=== PATIENT | male | born 1935 | race Caucasian/White ===

== ENCOUNTER 2017-07-21 10:00 | Emergency (ER) | payer MEDICARE ==
--- NOTE | 2017-07-21 12:44 | CT ---
LUMBAR SPINE CT WITHOUT CONTRAST: HISTORY: Trauma. Dementia. Falls. Lost balance and fell backwards onto his back. Post traumatic back pain . The patient also has chronic back pain. COMPARISON: None. TECHNIQUE: A lumbar spine CT is performed without contrast. Reformatted images are submitted for interpretatio n. FINDINGS: There is no retroperitoneal mass, lymphadenopathy, or hematoma. The aorta has an overall normal denise iber. Atherosclerosis is noted. Symmetric attenuation of the psoas muscles. There are five lumbar type vertebral bodies. Vertebral body height is maintained. There is no frac ture. Straightening of normal lumbar lordosis is noted. Vacuum disk phenomenon at T11-T12, L1-L2, and L4-L5. Limited evaluation of the contents of the central spinal canal and the neural foramina due to techni que. T11-T12/T12-L1: No high grade central canal stenosis or high grade foraminal narrowing. L1-L2: Vacuum disk phenomenon. Generalized disk bulge results in mild central canal stenosis. The re is posterior element hypertrophy. Mild to moderate bilateral foraminal narrowing. L2-L3: Generalized disk bulge, ligamentum flavum thickening, and facet hypertrophy results in moder ate to severe central canal stenosis. The right neural foramen is patent. Mild to moderate left ne ural foraminal narrowing. L3-L4: Broad-based disk bulge, ligamentum flavum thickening, and facet hypertrophy results in moder ate central canal stenosis. Moderate right and severe left foraminal narrowing. L4-L5: Vacuum disk phenomenon. Generalized disk bulge without significant central canal stenosis. Moderate bilateral foraminal narrowing. Left hemilaminectomy defect is noted. L5-S1: Generalized disk bulge without high grade central canal stenosis. There appears to be mild narrowing of both subarticular zones, predominantly due to posterior element hypertrophy. Moderate bilateral foraminal narrowing. Incidental bone island in the right S1 level. IMPRESSION: 1. No evidence of fracture. 2. Degenerative changes of the lumbar spine as above. POS: [facility]
--- NOTE | 2017-07-21 12:50 | CT ---
CT BRAIN WITHOUT CONTRAST: Date: 07/21/17 HISTORY: Trauma. Fall. COMPARISON: CT brain dated 06/18/17. FINDINGS: Left mid frontal encephalomalacia is similar. No acute territorial infarct or hemorrhage. Extensive atrophy and microangiopathic changes. There is significant atrophy of the temporal lobes bilaterally. Dense calcifications of the carotid arteries. Paranasal sinuses and mastoids are clear. The calvarium is intact. Subtle hyperdensity of the posterior left insula appears chronic. IMPRESSION: No acute intracranial abnormality. POS: [facility]
== END 2017-07-21 11:59 | disposition home or self-care (01) ==
LOC: ERS 10:00
DX: M54.5 Low back pain (principal); I25.2 Old myocardial infarction; E03.9 Hypothyroidism, unspecified; K21.9 Gastro-esophageal reflux disease without esophagitis; N40.0 Benign prostatic hyperplasia without lower urinary tract symptoms; H40.9 Unspecified glaucoma; I10 Essential (primary) hypertension; F03.90 Unspecified dementia, unspecified severity, without behavioral disturbance, psychotic disturbance, mood disturbance, and anxiety; J45.909 Unspecified asthma, uncomplicated; Z86.73 Personal history of transient ischemic attack (TIA), and cerebral infarction without residual deficits; Z79.82 Long term (current) use of aspirin; Z79.899 Other long term (current) drug therapy; W18.30XA Fall on same level, unspecified, initial encounter
CPT/HCPCS: 70450; 72131

== ENCOUNTER 2018-03-05 06:34 | Observation (INO) | payer MEDICARE ==
[2018-03-05] MEDS ORDERED: Morphine 4 MG/ML VIAL ONE ×2 (07:12→10:36)
[2018-03-05 08:11] LABS: #Eosinphils 0.3 thou/uL (0.0-0.7); #Monocytes 0.9 thou/uL (0.11-0.59); #Neutrophils 5.2 thou/uL (1.40-6.50); %Basophils 0.5 % (0.0-1.0); %Eosinophils 4.1 % (0.0-10.0); %Monocytes 11.7 % (0.0-10.0); %Neutrophils 69.8 % (42.0-75.0); Hemoglobin 14.6 g/dL (14.0-18.0); Mean Corpuscular HGB CONC 32.8 g/dL (32.0-36.0); Mean Corpuscular Hemoglobin 32.9 pg (27.0-31.0); Mean Platelet Volume 8.6 fL (7.4-10.4); Platelet Count 278 thou/uL (130-400); Red Blood Cell (RBC) Count 4.43 mill/uL (4.70-6.10); White Blood Cell (WBC) Count 7.4 thou/uL (4.8-10.8)
[2018-03-05 08:16] LABS: PTT 30.5 SEC (22.9-36.1); Prothrombin Time 13.7 SEC (12.0-14.7)
[2018-03-05 08:26] LABS: ALT (SGPT) 11 U/L (8-55); AST (SGOT) 16 U/L (5-34); Albumin 4.2 g/dL (3.4-4.8); Alkaline Phosphatase 53 U/L (40-150); Anion Gap 11 mmol/L (10-20); BUN (Urea Nitrogen) 12 mg/dL (8.4-25.7); Bilirubin, Total 0.5 mg/dL (0.2-1.2); Calc. Creatinine Clearance 0 mL/min (70-130); Calcium 9.5 mg/dL (7.8-10.44); Carbon Dioxide 27 mmol/L (23-31); Chloride 106 mmol/L (98-107); Estimated GFR-MDRD 88; Globulin 2.8 g/dL (2.4-3.5); Glucose 85 mg/dL (83-110); Potassium 3.9 mmol/L (3.5-5.1); Sodium 140 mmol/L (136-145)
[2018-03-05 08:27] LABS: Troponin I Less than 0.010 ng/mL (< 0.028)
--- NOTE | 2018-03-05 08:51 | CT ---
CT HEAD NONCONTRAST: History: Fall. Head injury. Comparison: 07-21-17 FINDINGS: There is no evidence of acute intracranial hemorrhage or infarct. Diffuse cortical atrophy and chroni c ischemic small vessel disease are similar in appearance to the previous exam. No mass effect or griselda ft of midline structures. Visualized paranasal sinuses remain well aerated. IMPRESSION: No acute intracranial abnormalities are demonstrated. POS: [facility]
--- NOTE | 2018-03-05 08:52 | CT ---
CT CERVICAL SPINE NONCONTRAST: History: Fall, neck injury. FINDINGS: Vertebral body height and alignment are maintained. Post-operative changes include posterior operativ e decompression of the lower cervical spine. Cervicothoracic junction is intact. Prominent osteophyto sis is present throughout the vertebral bodies and facets. No acute fracture or dislocation. IMPRESSION: Prominent degenerative and post-operative changes of the cervical spine. No acute osseous abnormaliti es are demonstrated. POS: [facility]
--- NOTE | 2018-03-05 08:55 | CT ---
CT THORACIC SPINE NONCONTRAST: History: Fall. Back injury. FINDINGS: Vertebral body height and alignment of the thoracic spine are intact. Moderate osteophytosis is prese nt throughout the vertebral bodies and facets. No acute fracture or dislocation are apparent. L1 superior endplate compression is detailed on dedicated CT lumbar spine. Small hiatal hernia. Calcification of the arterial structures. Old right posterior upper rib fracture s. IMPRESSION: 1. Degenerative changes thoracic spine. No acute osseous abnormalities are demonstrated. 2. Please see separate report regarding L1 compression injury. 3. Atherosclerosis. 4. Small hiatal hernia. POS: [facility]
--- NOTE | 2018-03-05 08:56 | RAD ---
AP PELVIS ONE VIEW: History: 82-year-old male with history of fall. Comparison: 10-22-16 FINDINGS: Bilateral hip joint arthrosis. No evidence for acute fracture or dislocation. Moderate degenerative c hanges. IMPRESSION: Bilateral hip joint arthrosis as well as generalized degenerative changes. No acute fracture or dislo cation. POS: [facility]
--- NOTE | 2018-03-05 08:57 | RAD ---
CHEST ONE VIEW: History: Fall. Comparison: 2017 FINDINGS: Dual-lead pacer is present. No focal airspace consolidation, pneumothorax, or effusion. There is a skin fold in the right hemithorax. Mild degenerative disease at the shoulders. IMPRESSION: No acute intrathoracic abnormality. POS: [facility]
--- NOTE | 2018-03-05 09:02 | CT ---
CT LUMBAR SPINE NONCONTRAST: History: Fall, back injury. FINDINGS: Mild depression/compression of the L1 superior endplate is present with minimal loss of height. No re tropulsion. Other vertebral body heights are maintained. Minimal degenerative retrolisthesis at the L3-4 level. D egenerative changes are similar to the 07-21-17 CT exam. There is calcification throughout the arterial structures. IMPRESSION: 1. Very mild acute L1 superior endplate compression injury. 2. Degenerative changes lumbar spine. 3. Atherosclerosis. Findings were called to Dr. Hilton in the Emergency Department at 0815 hours. Code CR POS: [facility]
[2018-03-05 09:09] LABS: Bilirubin Negative (Negative); Blood, Urine Negative (Negative); Clarity CLEAR (Clear); Glucose, Urine (Dipstick) Negative (Negative); Leukocyte Negative (Negative); Nitrite Negative (Negative); Protein, Urine (Dipstick) Negative (Neg-Trace); Specific Gravity, Urine 1.012 (1.002-1.036); Urobilinogen 0.2 mg/dL (0.2-1.0); pH, Urine 7.5 (5.0-9.0)
--- NOTE | 2018-03-05 14:19 | HP ---
DATE OF ADMISSION: 03/05/2018 ADMITTING PHYSICIAN: Dr. Fritz Mart. CONSULTING PHYSICIAN: Dr. Jaramillo, Neurosurgery. HISTORY OF PRESENT ILLNESS: Mr. Sheth is an 82-year-old male who for the past 4 years has had multiple falls due to his reported peripheral neuropathy and cervical myelopathy. He sustained a fall 3 days ago and has had gradual increase in back pain, making it difficult for him to move within his home and unable to assist with his activities of daily living. Due to his pain, he was transported to the emergency department by EMS today. Workup in the ED identified an L1 compression fracture. Neurosurgery was consulted and recommended TLSO brace placement. service liaison representative was consulted for evaluation of his admission to the rehab from the emergency department; however, this was unable to be completed. Due to the patient's significant back pain, he is felt unable to be safe discharge to home. Trauma Surgery was consulted for admission and management. Patient reports the pain is exacerbated by movement. The pain is alleviated by nothing. PAST MEDICAL HISTORY: 1. Cervical spinal stenosis. 2. Hyperlipidemia. 3. Obstructive sleep apnea requiring CPAP. 4. Hypothyroidism. 5. Hypertension. 6. History of chronic constipation. 7. History of atrial fibrillation. 8. History of colitis. PAST SURGICAL HISTORY: 1. Cholecystectomy. 2. Pacemaker placement. 3. Tonsillectomy. 4. Colon resection. 5. Adenoidectomy. ALLERGIES: 1. IODINE. 2. ORAL AND IV DYE. 3. LEVOFLOXACIN. 4. PENICILLIN. MEDICATIONS: 1. Azopt ophthalmic solution b.i.d. 2. Alphagan ophthalmic solution b.i.d. 3. Systane ophthalmic solution b.i.d. 4. Latanoprost ophthalmic solution b.i.d. 5. Isopto Carpine ophthalmic solution b.i.d. 6. Tramadol 50 mg 1 q.8 hours p.r.n. 7. Lasix 20 mg daily. 8. Nitrolingual pump spray 1 sublingual p.r.n. 9. Dutasteride 0.5 mg 1 daily. 10. Magnesium 500 mg daily. 11. Docusate daily. DIAGNOSTIC IMAGING: Significant for a mild L1 superior endplate compression fracture. EKG, paced rhythm. LABORATORY STUDIES: CBC: WBC 7.4, RBC 4.43, hemoglobin 14.6, hematocrit 44.6, platelets 278. Coagulation: PT 13.7, INR 1.0. Chemistry: Sodium 140, potassium 3.9, chloride 106, carbon dioxide 27, BUN 12, creatinine 0.83, glucose 85, AST 16, ALT 11. Troponin less than 0.010. REVIEW OF SYSTEMS: General: Denies chills, fever, recent weight loss, general malaise. HEENT: Denies pain, rhinorrhea or otorrhea. Pulmonary: Denies shortness of breath, cough, or wheezing. Denies chest tenderness. Cardiovascular: Denies chest pain. Denies syncope. Gastrointestinal: Denies abdominal pain. Denies nausea, denies vomiting, denies diarrhea, denies constipation. Musculoskeletal: Reports fall. Skin: Denies rash or skin changes. Neurologic: Reports cervical myelopathy history and chronic neck pain. Reports lower extremity weakness. Back: Reports mid lower back pain. PHYSICAL EXAMINATION: VITAL SIGNS: Blood pressure 136/75, pulse 61, respirations 18, O2 sat 93% on room air. CONSTITUTIONAL: Elderly male lying in bed in no acute distress, nontoxic appearing. HEENT: Atraumatic, normocephalic. NECK: Trachea midline. No posterior neck tenderness. RESPIRATORY/CHEST: Bilateral breath sounds clear. No respiratory distress. No tenderness to palpation. Chest movement symmetrical. CARDIOVASCULAR: Regular rate and rhythm. Heart sounds normal. ABDOMEN: Soft, nontender, nondistended. GENITOURINARY: Nolan in place with clear yellow urine. BACK: L-spine tenderness. EXTREMITIES: Normal range of motion. Pulses palpable, 2+. NEUROLOGIC: Awake, alert, oriented. No focal deficits. No focal weakness. SKIN: Warm, dry, and normal in color. PSYCHIATRIC: Normal mood and affect. ASSESSMENT: 1. Status post ground level fall. 2. L1 compression fracture. 3. Acute traumatic pain. 4. Generalized debility. 5. History of chronic back pain and multiple falls over the past 4 years. The patient is a current patient of Dr. Mcfadden, Neurosurgery. PLAN: 1. Admit to observation for pain control. 2. Consult Neurosurgery. TLSO brace to be placed. 3. Physical and occupational therapy evaluation. 4. Case management consult for discharge planning. Anticipate patient will need rehab or [facility] facility. 5. Discussed with music rehabilitation therapist. Evaluation in progress. 6. Oral analgesia for pain control. 7. Regular diet. 8. Hospital Medicine consult for assistance with medical management. 9. Discussed code status at length with the patient's and patient's [id number]. The patient is DNR per family request. This patient was reviewed with Dr. Mart, attending surgeon, who agrees with plan. MTDD
[2018-03-05] MEDS ORDERED: Dextrose 50% Abboject 50 ML SYRINGE SLOW IVP PRN (17:03)
[2018-03-05] MEDS ORDERED: Dextrose 5% in Water 1,000 ML IV PRN (17:03)
--- NOTE | 2018-03-05 18:38 | CON ---
DATE OF CONSULTATION: 03/05/2018 ATTENDING PHYSICIAN: Dr. Tunde Cardona. HISTORY OF PRESENT ILLNESS: Patient is an 82-year-old male with a past medical history of cervical stenosis status post C^ posterior decomp[place] [address] Mcfadden, hypertension, hyperlipidemia, atrial fibrillation with history of multiple falls over the years, who presented to the emergency department after mechanical fall. His family reported that 3 days ago, he tripped while walking with his walker in his home. He developed some lower back pain at that time which became progressively worse over the past 3 days, making it difficult to sustain ADLs in his home. His family brought him to the emergency department for further evaluation where CT of the lumbar spine was done which revealed an L1 compression deformity. I reviewed these films which showed mild wedge fracture at L1. There is no retropulsion. I have seen the patient at the bedside. He is awake, alert, no acute distress. He has 5/5 strength throughout. No focal motor weakness. In discussing with his family, they report in spite of cervical decompression, he continued to have falls, has been worked up by multiple physicians without clear etiology for his frequent falling. His family reports that his ambulation and falling does not appear to be in any significant worsening from his baseline. His family states that he does well when he is consistent with his therapy, but the patient has been noncompliant as of late. PAST MEDICAL HISTORY: Cervical stenosis, hypertension, hyperlipidemia, sleep apnea, hypothyroid, chronic constipation, atrial fibrillation. PAST SURGICAL HISTORY: Cholecystectomy, pacemaker, tonsillectomy, colon resection, posterior C6 cervical decompression. ALLERGIES: IODINE. FAMILY HISTORY: Noncontributory. PHYSICAL EXAMINATION: CONSTITUTIONAL: Patient is sitting in the bed comfortable, in no acute distress. HEENT: Normocephalic, atraumatic. EYES: PERRLA. Extraocular movements intact. ENT: Oral mucosa is pink, intact, moist. He has a normal voice. NECK: Nontender to palpation. Free active range of motion, no meningismus or nuchal rigidity. CARDIOVASCULAR: Regular rate and rhythm. LUNGS: The patient is breathing comfortably with symmetric chest expansion. MUSCULOSKELETAL: Patient has free active range of motion of all extremities. No focal motor weakness is identified. No reflex asymmetry. BACK: He is tender to palpation over the upper lumbar spine. Pain with any movement. ASSESSMENT: This is an 82-year-old male who has had multiple falls over the years without any clear etiology. His family denies any significant worsening with his ambulation, reports that he does do well when he is consistent with this therapy; however, he has been noncompliant with this as of late. His CT of the lumbar spine revealed a mild compression deformity at L1. There is no retropulsion. I do not anticipate any acute neurosurgical intervention for this fracture and a TLSO brace has been ordered. The patient would benefit from admission for pain control and transition to inpatient rehabilitation for improvement in his ambulation. PLAN: We will plan to follow up with the patient in approximately 4 weeks with repeat set of lumbar x-rays. I will arrange this. I have also discussed this plan with Dr. Cardona who is in agreement. Please reach out to Neurosurgery Service for additional questions or concerns. JOSEPH
[2018-03-05] MEDS ORDERED: Hydrocerin (Eucerin) Cream 120 gm Jar TOP PRN (22:14)
[2018-03-05] MEDS ORDERED: Diabetic Tussin 200 MG/10 ML UDCUP PO PRN (22:14)
[2018-03-05] MEDS ORDERED: Mag-Al 1200 mg/1200 mg/30 ML UDCUP PO PRN (22:14)
[2018-03-05] MEDS ORDERED: Senokot 8.6 MG TAB PO PRN (22:14)
[2018-03-05] MEDS ORDERED: Ondansetron ODT 4 MG TAB PO PRN (22:14)
[2018-03-05] MEDS ORDERED: hydrALAZINE 20 MG/ML VIAL SLOW IVP PRN (22:14)
[2018-03-05] MEDS ORDERED: Artificial Tears 18 DROP/0.9 ML EA EYE PRN (22:14)
[2018-03-05] MEDS ORDERED: Milk Of Magnesia 30 ML UDCUP PO PRN (22:14)
[2018-03-05] MEDS ORDERED: Ondansetron HCl/PF 4 MG/2 ML Vial IVP PRN (22:14)
[2018-03-05] MEDS ORDERED: Chloraseptic Spray 180 ml Bottle PO PRN (22:14)
[2018-03-05] MEDS ORDERED: Sodium Chloride 0.65% Nasal 44 ML BOT EA NARE PRN (22:14)
[2018-03-05] MEDS ORDERED: Famotidine 20 MG TAB PO PRN (22:14)
[2018-03-05] MEDS ORDERED: Loratadine 10 MG TAB PO PRN (22:14)
[2018-03-05] MEDS ORDERED: BRINZOLAMIDE 1% EA EYE SCH (22:30)
[2018-03-05] MEDS ORDERED: OPTH EA EYE SCH ×3 (22:30)
[2018-03-05] MEDS ORDERED: PILOCARPINE 1% R EYE SCH (22:30)
[2018-03-05] MEDS ORDERED: BRIMONIDINE EA EYE SCH (22:30)
[2018-03-05] MEDS ORDERED: LATANOPROST 0.005% EA EYE SCH (22:30)
[2018-03-05] MEDS ORDERED: OPTH R EYE SCH (22:30)
[2018-03-05] MEDS ORDERED: Tamsulosin HCl 0.4 MG CAP PO SCH (22:30)
[2018-03-05] MEDS ORDERED: [UNRECOGNIZED DRUG - OTHER] EA EYE SCH (22:30)
[2018-03-05] MEDS ORDERED: Dutasteride 0.5 MG CAP PO SCH (22:30)
[2018-03-05] MEDS: Ibuprofen 600 MG TAB PO PRN (22:49)
[2018-03-05] MEDS: Senokot S 8.6-50 MG TAB PO SCH (22:49)
[2018-03-05] MEDS: Zolpidem Tartrate 5 MG TAB PO PRN (22:50)
--- NOTE | 2018-03-05 23:28 | CON ---
DATE OF CONSULTATION: 03/05/2018 PRIMARY CARE PHYSICIAN: Michael De La Rosa MD ATTENDING PHYSICIAN: Dr. Mart. REASON FOR CONSULTATION: Medical co-management. HISTORY OF PRESENT ILLNESS: An 82-year-old male who has multiple medical problems, who was brought to emergency room earlier today with a complaint of back pain. The patient had a fall at his home on Thursday. He did not have any loss of consciousness. It was a mechanical fall, but unexplained. Per , the patient had multiple falls at home and since then he was having gradually increasing back pain. He was also having back pain, which was getting worse with walking and with inspiration. He denies any incontinence of urine or stool. He denies any pleuritic chest pains, shortness of breath, fever, chills , UTI symptoms. He denies any head injury. He denies any headache or focal motor or sensory symptoms. His back pain intensity was about 10/10, which was getting worse with walking, sharp in nature. He denies any radicular pain. This patient has a long history of cervical stenosis and he required cervical spine decompression as well as posterior decompression [place] [address] Mcfadden. The patient also has arthritis everywhere and today in the emergency room, CT lumbar spine showed L1 compression deformity. The patient was admitted under trauma team and neurosurgeon saw this patient. Later on today, we were consulted for medical co-management. REVIEW OF SYSTEMS: The following complete review of systems was negative, unless otherwise mentioned in the HPI or below: Constitutional: Weight loss or gain, ability to conduct usual activities. Skin: Rash, itching. Eyes: Double vision, pain. ENT/Mouth: Nose bleeding, neck stiffness, pain, tenderness. Cardiovascular: Palpitations, dyspnea on exertion, orthopnea. Respiratory: Shortness of breath, wheezing, cough, hemoptysis, fever or night sweats. Gastrointestinal: Poor appetite, abdominal pain, heartburn, nausea, vomiting, constipation, or diarrhea. Genitourinary: Urgency, frequency, dysuria, nocturia. Musculoskeletal: Pain, swelling. Neurologic/Psychiatric: Anxiety, depression. Allergy/Immunologic: Skin rash, bleeding tendency. Please see my HPI for pertinent positive and negative. All other review of systems reviewed and negative except as mentioned in HPI. PAST MEDICAL HISTORY: Cervical spine stenosis, required surgery in 2014; hypertension; dyslipidemia; hypothyroidism; chronic constipation; paroxysmal atrial fibrillation; obstructive sleep apnea, requiring CPAP machine; glaucoma; benign enlargement of prostate; gastroesophageal reflux disease; coronary artery disease. PAST SURGICAL HISTORY: Cholecystectomy, pacemaker insertion, tonsillectomy, colon resection, adenoidectomy, hernia repair. PAST PSYCHIATRIC HISTORY: Reviewed and negative. ALLERGIES: IODINE, ORAL AND IV CONTRAST, LEVOFLOXACIN, PENICILLIN. SOCIAL HISTORY: The patient is , lives at home with his . No history of tobacco, alcohol, or illicit drug abuse. 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 FAMILY HISTORY: No strong family history of premature CAD, CVA or cancer. EMERGENCY ROOM COURSE: The patient was given morphine 4 mg x2. CURRENT HOME MEDICATIONS: Aspirin 81 mg p.o. daily; Alphagan ophthalmic drops, one drop each eye daily; Azopt ophthalmic drops b.i.d.; Colace 100 mg daily; Avodart 0.5 mg p.o. daily; Lasix 20 mg p.o. daily; Xalatan eyedrops q.p.m.; Synthroid 50 mcg p.o. daily; magnesium oxide 400 mg p.o. daily; nitroglycerin p.r.n.; Protonix 40 mg p.o. daily; pilocarpine 1 drop in right eye q.6 hourly; MiraLax 17 grams p.o. daily; potassium 1 tablet daily; Systane eyedrops q.12 hourly; Ranexa 500 mg p.o. daily; Flomax 0.4 mg p.o. at bedtime; tramadol 50 mg q.8 hourly p.r.n.; coenzyme Q10, 200 mg p.o. daily. PHYSICAL EXAMINATION: VITAL SIGNS: On arrival to emergency room, blood pressure 161/98, pulse 80, respiratory rate 16, temperature 98.7, saturation 97% on room air, weight 83.9 kilograms. GENERAL: The patient is currently alert, awake, in no acute distress. HEAD: Normocephalic, atraumatic. EYES: Pupils round, reactive to light. Extraocular muscle intact. ENT: Oropharynx within normal limits. Moist mucous membranes. No oral lesion , no pharyngeal erythema, no exudate. NECK: Supple. No JVD, no thyromegaly, no carotid bruit, no jugular venous distention. LUNGS: Clear to auscultation without any rhonchi or rales. CARDIAC: S1, S2 regular without any murmur. No gallop, no rub. ABDOMEN: Soft. Bowel sounds present. Nontender, nondistended. No organomegaly, no mass. In the emergency room, the patient had bladder distention, required Nolan catheter. GENITALIA: Nolan catheter in place. BACK: Tenderness over lumbar spine. EXTREMITIES: Upper extremity passive movement of all joints are normal. Lower extremity passive movement of all joints are normal. No edema. Good peripheral pulsation. SKIN: No skin rash. HEMATOLOGIC: No lymphadenopathy. PSYCHIATRIC: Normal affect. NEUROLOGIC: The patient follows commands. He does not have any focal neurological deficit. He moves all 4 limbs. PSYCHIATRIC: Normal affect. SIGNIFICANT LABORATORY DATA: EKG showing complete right bundle-branch block pattern, nonspecific ST-T changes. CT brain based on my review, no acute intracranial process. CT cervical spine negative for any fracture or dislocation, but consistent with cervical arthritis. Lumbar and thoracic spine CT scan negative for any acute process, but showed overall degenerative spine disease. CT lumbar spine showing degenerative spine disease with L1 compression fracture. Chest x-ray based on my review, no acute cardiopulmonary process. CT brain based on my review, no acute intracranial process. SIGNIFICANT LABORATORY DATA: WBC 7.4, hemoglobin 14.6, MCV 100, platelet 278, INR 1.0. BMP: Sodium 140, potassium 3.9, chloride 106, carbon dioxide 27, anion gap 11, BUN 12, creatinine 0.83, glucose 85, calcium 9.5. LFT: AST 16, ALT 11, alkaline phosphatase 53, albumin 4.2. Troponin I less than 0.010. Urinalysis is normal. ASSESSMENT AND PLAN: 1. L1 compression fracture. This patient is elderly. He most likely has underlying osteoporosis. He had mechanical fall and subsequently he had L1 compression fracture and because of that, the patient has worsening of acute on chronic back pain. At this point, the patient is already evaluated by neurosurgeon. This patient most likely will need a thoracolumbar spine brace. [facility] will be notified. This patient will need PT/OT evaluation and possibly rehab screen or placement to [facility] home. technical account manager will be consulted. His pain will be controlled with pain medication. 2. Frequent falls. This patient will need PT/OT and eventual strengthening his physical deconditioning with exercise program at a [facility] home versus rehabilitation. technical account manager will be consulted. Rehabilitation will be consulted. 3. Coronary artery disease. Continue aspirin 81 mg p.o. daily. 4. Glaucoma. Continue Alphagan, Azopt, pilocarpine, Xalatan eyedrops as per home dosage. 5. Benign enlargement of prostate. Continue Avodart 0.5 mg p.o. daily along with Flomax 0.4 mg p.o. daily. 6. Hypothyroidism. Continue Synthroid 50 mcg p.o. daily. 7. Chronic constipation. Continue stool softener on daily basis. 8. Obstructive sleep apnea. The patient can use his home CPAP machine while in hospital. 9. Macrocytosis. We will start folic acid and vitamin B12 therapy on him. 10. Deep venous thrombosis prophylaxis. SCD boots. 11. Acute urinary retention likely due to underlying acute pain, constipation, and underlying benign enlargement of prostate. Currently, Nolan catheter placed. The patient will need a voiding trial tomorrow. If he does not void by himself, then he may need a catheter in and that he has to follow up with Urology on an outpatient basis. CODE STATUS: The patient is DNR. The patient's is surrogate decision maker. Disposition plan based on clinical course. Most likely, the patient will stay in hospital 24-48 hours, and he will need rehabilitation or [facility] home placement. Gastrointestinal prophylaxis, Protonix 40 mg p.o. daily. Thank you for the consult. We will follow up with you while in hospital. JOSEPH
[2018-03-06] MEDS: Levothyroxine Sodium 50 MCG TAB PO SCH (05:19)
[2018-03-06 06:07] LABS: Anion Gap 11 mmol/L (10-20); BUN (Urea Nitrogen) 15 mg/dL (8.4-25.7); Calc. Creatinine Clearance 80 mL/min (70-130); Calcium 9.1 mg/dL (7.8-10.44); Carbon Dioxide 25 mmol/L (23-31); Chloride 105 mmol/L (98-107); Estimated GFR-MDRD Greater than 90; Glucose 97 mg/dL (83-110); Magnesium 2.3 mg/dL (1.6-2.6); Phosphorus 3.7 mg/dL (2.3-4.7); Potassium 3.6 mmol/L (3.5-5.1); Sodium 137 mmol/L (136-145)
[2018-03-06 06:12] LABS: Band 1 % (5-11); Eosinophils 1 % (0-10); Hemoglobin 14.4 g/dL (14.0-18.0); Lymphocytes 19 % (21-51); MDiff Complete? YES; Mean Corpuscular Hemoglobin 32.8 pg (27.0-31.0); Mean Corpuscular Volume 99.3 fl (80.0-94.0); Mean Platelet Volume 8.1 fL (7.4-10.4); Monocytes 12 % (0-10); Neutrophil 67 % (42-75); Platelet Count 274 thou/uL (130-400); RBC Distribution Width 11.7 % (11.5-14.5); White Blood Cell (WBC) Count 8.4 thou/uL (4.8-10.8)
[2018-03-06] MEDS: Polyethylene Glycol 3350 17 GM Packet PO SCH (08:49)
[2018-03-06] MEDS: Magnesium Oxide 250 MG TAB PO SCH (08:49)
[2018-03-06] MEDS: Cyanocobalamin (Vitamin B-12) 1,000 MCG TAB PO SCH (08:49)
[2018-03-06] MEDS: Potassium Chloride 10 MEQ TAB PO SCH (08:50)
[2018-03-06] MEDS: Aspirin 81 mg Enteric Coated Tablet PO SCH (08:50)
[2018-03-06] MEDS: Folic Acid 1 MG TAB PO SCH (08:50)
[2018-03-06] MEDS: Calcium Carbonate + Vit D 1 TAB PO SCH ×2 (08:50→16:31)
[2018-03-06] MEDS: Ibuprofen 600 MG TAB PO PRN ×2 (08:50→20:03)
[2018-03-06] MEDS: Furosemide 20 MG TAB PO SCH (08:51)
[2018-03-06] MEDS: Senokot S 8.6-50 MG TAB PO SCH ×2 (08:51→20:03)
[2018-03-06] MEDS: OPTH R EYE SCH ×4 (09:09→20:12)
[2018-03-06] MEDS: PILOCARPINE 1% R EYE SCH ×4 (09:09→20:12)
[2018-03-06] MEDS: [UNRECOGNIZED DRUG - OTHER] EA EYE SCH ×2 (09:10→20:12)
[2018-03-06] MEDS: OPTH EA EYE SCH ×4 (09:11→20:12)
[2018-03-06] MEDS: BRINZOLAMIDE 1% EA EYE SCH ×2 (09:11→20:12)
--- NOTE | 2018-03-06 10:48 | ADD-HP ---
ADDENDUM This is an addendum to the H&P dictated by Dena Diallo Trauma SILK EXAMINER. For full details, please see her dictated H&P, the details of which I have verified. HISTORY OF PRESENT ILLNESS: In short, Mr. Sheth is an 82-year-old man who lost his balance and fell 3 days ago, sustaining back pain. This has been increasing over the past 3 days and making it diffi cult for him to do his activities of daily living. He was brought in by EMS and found to have an L1 compression fracture and TLSO brace placement was recommended. Due to his frequent falls and signifi cant back pain, he was admitted to the hospital with Neurosurgery consultation and physical therapy a nd PM&R. PAST MEDICAL AND SURGICAL HISTORY: As per trauma H&P. ALLERGIES AND MEDICATIONS: Verified as well. IMAGING: Negative except for L1 superior endplate compression fracture. LABORATORY DATA: Labs are unremarkable. Coags are normal. PHYSICAL EXAMINATION: No other acute findings except for pain over the lower back. He is going to be admitted with PT, OT and PM&R evaluation and treatment and will likely need to be a dmitted to acute rehabilitation unless his condition improves.
--- NOTE | 2018-03-06 13:07 | PDOC.PN ---
- Subjective Encounter Start Date: 03/06/18 Encounter Start Time: 08:00 Pt seen for followup re: hypothyroidism. Denies chest pain. Back pain is better. No nausea, vomiting or diarrhea. - Objective Resuscitation Status: Resuscitation Status DNR:Do Not Resuscitate Vital Signs & Weight: Vital Signs (12 hours) Temp Pulse Resp BP Pulse Ox 03/06/18 11:34 97.4 F L 63 16 178/70 H 94 L 03/06/18 08:10 97.9 F 54 L 12 151/75 H 95 03/06/18 08:09 97.8 F 72 16 03/06/18 08:00 62 16 164/71 H 93 L Weight Weight 183 lb 6.4 oz I&O: 03/05/18 03/06/18 03/07/18 06:59 06:59 06:59 Intake Total 450 Output Total 750 Balance -300 Result Diagrams: 03/06/18 05:21 03/06/18 05:21 Phys Exam - Physical Examination Constitutional: NAD HEENT: moist MMs Neck: supple Respiratory: clear to auscultation bilateral Cardiovascular: RRR Gastrointestinal: soft Neurological: moves all 4 limbs Psychiatric: normal affect Dx/Plan (1) Hypothyroidism Code(s): E03.9 - HYPOTHYROIDISM, UNSPECIFIED Status: Chronic Comment: continue levothyroxine (2) CAD (coronary artery disease) Code(s): I25.10 - ATHSCL HEART DISEASE OF [place] CORONARY ARTERY W/O ANG PCTRS Status: Chronic Qualifiers: Comment: stable, continue aspirin (3) GERD (gastroesophageal reflux disease) Code(s): K21.9 - GASTRO-ESOPHAGEAL REFLUX DISEASE WITHOUT ESOPHAGITIS Status: Chronic Comment: continue Protonix (4) Hypertension Code(s): I10 - ESSENTIAL (PRIMARY) HYPERTENSION Status: Chronic Qualifiers: Comment: Monitor vital signs, titrate antihypertensives as needed - Plan plan discussed w/ family, PT/OT, out of bed/ambulate * . Review of Systems - Review of Systems Respiratory: negative: Cough, Shortness of Breath, SOB with Excertion, Pleuritic Pain, Wheezing Cardiovascular: negative: chest pain, palpitations, orthopnea, paroxysmal nocturnal dyspnea, edema, light headedness - Medications/Allergies Allergies/Adverse Reactions: Allergies Allergy/AdvReac Type Severity Reaction Status Date / Time Penicillins Allergy Intermediate Rash Verified 03/05/18 17:43 Iodinated Contrast- Oral and Allergy Verified 03/05/18 17:43 IV Dye [Iodinated Contrast Media - IV Dye] levofloxacin [From Levaquin] Allergy Rash Verified 03/05/18 17:43 Medications: Current Medications Acetaminophen (Tylenol) 1,000 mg PO Q6H PRN PRN Reason: Moderate to Severe Pain (6-10) Al Hydroxide/Mg Hydroxide (Maalox) 15 ml PO Q4H PRN PRN Reason: Heartburn or Indigestion Artificial Tears (Tears Naturale) 0 drop EA EYE PRN PRN PRN Reason: Dry Eyes Aspirin (Ecotrin) 81 mg PO DAILY [facility] Last Admin: 03/06/18 08:50 Dose: 81 mg Calcium/Vitamin D (Caltrate 600 + Vit D) 1 tab PO BID-[facility] Last Admin: 03/06/18 08:50 Dose: 1 tab Cholecalciferol (Vitamin D3) 1,000 units PO DAILY [facility] Last Admin: 03/06/18 08:50 Dose: 1,000 units Cyanocobalamin (Vitamin B-12) 1,000 mcg PO DAILY [facility] Last Admin: 03/06/18 08:49 Dose: 1,000 mcg Dextrose/Water (Dextrose 50%) 25 gm SLOW IVP PRN PRN PRN Reason: Hypoglycemia Dutasteride (Avodart) 0.5 mg PO HS [facility] Emollient Cream (Hydrocerin Cream) 0 gm TOP BIDPRN PRN PRN Reason: Dry Skin Famotidine (Pepcid) 20 mg PO BIDPRN PRN PRN Reason: Heartburn or Indigestion Folic Acid (Folvite) 1 mg PO DAILY [facility] Last Admin: 03/06/18 08:50 Dose: 1 mg Furosemide (Lasix) 20 mg PO DAILY [facility] Last Admin: 03/06/18 08:51 Dose: 20 mg Glucagon (Glucagon) 1 mg IM PRN PRN PRN Reason: Hypoglycemia Guaifenesin (Robitussin Sf) 200 mg PO Q4H PRN PRN Reason: Cough Hydralazine HCl (Apresoline) 10 mg SLOW IVP Q4H PRN PRN Reason: Systolic BP > 180 Dextrose/Water (D5w) 1,000 mls @ 0 mls/hr IV .Q0M PRN; As Directed PRN Reason: Hypoglycemia Ibuprofen (Motrin) 600 mg PO Q8H PRN PRN Reason: Pain Last Admin: 03/06/18 08:50 Dose: 600 mg Levothyroxine Sodium (Synthroid) 50 mcg PO 0600 [facility] Last Admin: 03/06/18 05:19 Dose: 50 mcg Loratadine (Claritin) 10 mg PO DAILYPRN PRN PRN Reason: Sinus Symptoms Magnesium Hydroxide (Milk Of Magnesium) 30 ml PO DAILYPRN PRN PRN Reason: Constipation Magnesium Oxide (Magnesium Oxide) 500 mg PO DAILY [facility] Last Admin: 03/06/18 08:49 Dose: 500 mg Ondansetron HCl (Zofran Odt) 4 mg PO Q6H PRN PRN Reason: Nausea/Vomiting Ondansetron HCl (Zofran) 4 mg IVP Q6H PRN PRN Reason: Nausea/Vomiting Brimonidine ( Alphagan P 0.1%) Opth Soln 0 each EA EYE QPM [facility] Brinzolamide (Azopt) (1% Opth Susp) 0 each EA EYE BID [facility] Last Admin: 03/06/18 09:11 Dose: 1 each Latanoprost (Xalatan () 0.005% Opth Soln) 0 each EA EYE QPM [facility] Pilocarpine (Isopto Carpine) 1% Opth Soln 0 each R EYE QID [facility] Last Admin: 03/06/18 09:09 Dose: 1 each Propylene Glycol ( Systane Balance) Eye Drops 0 each EA EYE BID [facility] Last Admin: 03/06/18 09:10 Dose: 1 each Phenol (Chloraseptic [place] 180 Ml Bot) 0 ml PO PRN PRN PRN Reason: Sore Throat Polyethylene Glycol (Miralax) 17 gm PO DAILY [facility] Last Admin: 03/06/18 08:49 Dose: 17 gm Potassium Chloride (Klor-Con 10) 10 meq PO QAM-WM [facility] Last Admin: 03/06/18 08:50 Dose: 10 meq Ranolazine (Ranexa) 500 mg PO DAILY [facility] Last Admin: 03/06/18 08:49 Dose: 500 mg Senna (Senokot) 2 tab PO HSPRN PRN PRN Reason: Constipation Senna/Docusate Sodium (Senokot S) 1 tab PO BID [facility] Last Admin: 03/06/18 08:51 Dose: 1 tab Sodium Chloride (Flush - Normal Saline) 10 ml IVF PRN PRN PRN Reason: Saline Flush Sodium Chloride ([place] Nasal [place] 0.65%) 0 ml EA NARE QIDPRN PRN PRN Reason: Nasal Congestion Tamsulosin HCl (Flomax) 0.4 mg PO HS [facility] Zolpidem Tartrate (Ambien) 5 mg PO HSPRN PRN PRN Reason: Insomnia Last Admin: 03/05/18 22:50 Dose: 5 mg
--- NOTE | 2018-03-06 17:42 | PRG ---
DATE OF SERVICE: 03/06/2018 ATTENDING PHYSICIAN: Dr. Mart. SUBJECTIVE: Mr. Sheth is an 82-year-old male, who is status post ground level fall. He has an L1 compression fracture identified in ED. He was seen by Neurosurgery, who recommended TLSO brace placement. He was admitted to the surgical floor for pain control and physical therapy. Rehabilitation referral was made. He has been stable on the floor without issue. PHYSICAL EXAMINATION: VITAL SIGNS: Pulse 54, respirations 12, O2 sat 95% on room air, blood pressure 151/75, temperature 97.9. CONSTITUTIONAL: Elderly male, lying in bed, in no acute distress. HEENT: Atraumatic, normocephalic. RESPIRATORY/CHEST: Bilateral breath sounds clear. No respiratory distress. Chest movement symmetrical. CARDIOVASCULAR: Regular rate and rhythm. Heart sounds normal. ABDOMEN: Soft, nontender, nondistended. EXTREMITIES: Moves all extremities. Cap refill brisk. Neurovascularly intact. NEUROLOGIC: GCS of 15. ASSESSMENT: 1. Status post ground level fall. 2. L1 compression fracture. 3. Acute traumatic pain. 4. Generalized debility. 5. History of chronic back pain and multiple falls over the past 4 years. PLAN: 1. Continue physical and occupational therapy. 2. TLSO brace for out of bed activities. 3. Case management following for discharge planning. Anticipate patient will need rehabilitation. Rehabilitation referral made. 4. Continue oral analgesia for pain control. 5. Regular diet. 6. Appreciate Hospital Medicine assistance with medical management. 7. Lovenox for DVT prophylaxis. 8. Pepcid for gastritis prophylaxis. 9. Encourage pulmonary toilet/IS. This patient was reviewed with Dr. Mart, who agrees with plan. [facility]
[2018-03-06] MEDS: Tamsulosin HCl 0.4 MG CAP PO SCH (20:03)
[2018-03-06] MEDS: Dutasteride 0.5 MG CAP PO SCH (20:03)
[2018-03-06] MEDS: BRIMONIDINE EA EYE SCH (20:12)
[2018-03-06] MEDS: LATANOPROST 0.005% EA EYE SCH (20:12)
[2018-03-06] MEDS: Zolpidem Tartrate 5 MG TAB PO PRN (22:37)
[2018-03-07 05:39] LABS: #Eosinphils 0.3 thou/uL (0.0-0.7); Platelet Count 295 thou/uL (130-400)
[2018-03-07 05:59] LABS: #Lymphocytes 1.1 thou/uL (1.20-3.40); #Monocytes 0.8 thou/uL (0.11-0.59); #Neutrophils 5.4 thou/uL (1.40-6.50); %Basophils 0.6 % (0.0-1.0); %Eosinophils 3.5 % (0.0-10.0); %Monocytes 9.9 % (0.0-10.0); %Neutrophils 71.1 % (42.0-75.0); Hemoglobin 14.2 g/dL (14.0-18.0); Mean Corpuscular HGB CONC 33.3 g/dL (32.0-36.0); Mean Corpuscular Hemoglobin 33.1 pg (27.0-31.0); Mean Corpuscular Volume 99.4 fl (80.0-94.0); Mean Platelet Volume 8.2 fL (7.4-10.4); RBC Distribution Width 11.7 % (11.5-14.5); White Blood Cell (WBC) Count 7.6 thou/uL (4.8-10.8)
[2018-03-07 06:19] LABS: Anion Gap 13 mmol/L (10-20); BUN (Urea Nitrogen) 14 mg/dL (8.4-25.7); Calc. Creatinine Clearance 83 mL/min (70-130); Calcium 9.2 mg/dL (7.8-10.44); Carbon Dioxide 21 mmol/L (23-31); Chloride 107 mmol/L (98-107); Estimated GFR-MDRD Greater than 90; Glucose 129 mg/dL (83-110); Magnesium 2.2 mg/dL (1.6-2.6); Phosphorus 3.5 mg/dL (2.3-4.7); Potassium 3.8 mmol/L (3.5-5.1); Sodium 137 mmol/L (136-145)
[2018-03-07] MEDS: Levothyroxine Sodium 50 MCG TAB PO SCH (06:49)
[2018-03-07] MEDS: Calcium Carbonate + Vit D 1 TAB PO SCH ×2 (08:03→17:49)
[2018-03-07] MEDS: Potassium Chloride 10 MEQ TAB PO SCH (08:03)
[2018-03-07] MEDS: Enoxaparin Sodium 40 MG/0.4 ML SYRINGE SC SCH (08:03)
[2018-03-07] MEDS: Furosemide 20 MG TAB PO SCH (08:03)
[2018-03-07] MEDS: Folic Acid 1 MG TAB PO SCH (08:03)
[2018-03-07] MEDS: Aspirin 81 mg Enteric Coated Tablet PO SCH (08:03)
[2018-03-07] MEDS: Magnesium Oxide 250 MG TAB PO SCH (08:03)
[2018-03-07] MEDS: Polyethylene Glycol 3350 17 GM Packet PO SCH (08:03)
[2018-03-07] MEDS: Senokot S 8.6-50 MG TAB PO SCH ×2 (08:04→21:05)
[2018-03-07] MEDS: Cyanocobalamin (Vitamin B-12) 1,000 MCG TAB PO SCH (08:04)
[2018-03-07] MEDS: BRINZOLAMIDE 1% EA EYE SCH ×2 (08:53→21:04)
[2018-03-07] MEDS: [UNRECOGNIZED DRUG - OTHER] EA EYE SCH ×2 (08:53→21:05)
[2018-03-07] MEDS: OPTH EA EYE SCH ×4 (08:53→21:04)
[2018-03-07] MEDS: OPTH R EYE SCH ×4 (08:53→21:05)
[2018-03-07] MEDS: PILOCARPINE 1% R EYE SCH ×4 (08:53→21:05)
[2018-03-07] MEDS ORDERED: Potassium Chloride 20 MEQ TAB PO SCH (11:00)
--- NOTE | 2018-03-07 12:32 | PDOC.PN ---
- Subjective Encounter Start Date: 03/07/18 Encounter Start Time: 09:00 Pt seen for followup re: hypertension. Denies chest pain, back pain is better. - Objective Resuscitation Status: Resuscitation Status DNR:Do Not Resuscitate MAR Reviewed: Yes Vital Signs & Weight: Vital Signs (12 hours) Temp Pulse Resp BP BP Pulse Ox 03/07/18 11:47 97.5 F L 61 18 179/101 H 95 03/07/18 08:00 97.7 F 64 18 174/83 H 94 L 03/07/18 07:16 97.7 F 64 18 174/83 H 94 L 03/07/18 07:00 97.7 F 64 18 174/83 H 94 L 03/07/18 03:00 98.3 F 63 16 151/76 H 92 L Weight Weight 183 lb 6.4 oz I&O: 03/06/18 03/07/18 03/08/18 06:59 06:59 06:59 Intake Total 450 2520 Output Total 750 2825 Balance -300 -305 Result Diagrams: 03/07/18 05:17 03/07/18 05:17 Additional Labs: Labs reviewed by me Phys Exam - Physical Examination Constitutional: NAD HEENT: moist MMs Neck: supple Respiratory: clear to auscultation bilateral Cardiovascular: RRR Gastrointestinal: soft Neurological: moves all 4 limbs Psychiatric: normal affect Skin: no rash Dx/Plan (1) Hypertension Code(s): I10 - ESSENTIAL (PRIMARY) HYPERTENSION Status: Chronic Qualifiers: Comment: BP elevated, continue PRN IV hydralazine, add low-dose amlodipine (2) Hypothyroidism Code(s): E03.9 - HYPOTHYROIDISM, UNSPECIFIED Status: Chronic Comment: stable , continue levothyroxine (3) CAD (coronary artery disease) Code(s): I25.10 - ATHSCL HEART DISEASE OF [place] CORONARY ARTERY W/O ANG PCTRS Status: Chronic Qualifiers: Comment: continue aspirin (4) GERD (gastroesophageal reflux disease) Code(s): K21.9 - GASTRO-ESOPHAGEAL REFLUX DISEASE WITHOUT ESOPHAGITIS Status: Chronic Comment: stable, continue Protonix - Plan * . Review of Systems - Review of Systems Constitutional: negative: fever, chills, sweats, weakness, malaise Cardiovascular: negative: chest pain, palpitations, orthopnea, paroxysmal nocturnal dyspnea, edema, light headedness - Medications/Allergies Allergies/Adverse Reactions: Allergies Allergy/AdvReac Type Severity Reaction Status Date / Time Penicillins Allergy Intermediate Rash Verified 03/05/18 17:43 Iodinated Contrast- Oral and Allergy Verified 03/05/18 17:43 IV Dye [Iodinated Contrast Media - IV Dye] levofloxacin [From Levaquin] Allergy Rash Verified 03/05/18 17:43 Medications: Current Medications Acetaminophen (Tylenol) 1,000 mg PO Q6H PRN PRN Reason: Moderate to Severe Pain (6-10) Al Hydroxide/Mg Hydroxide (Maalox) 15 ml PO Q4H PRN PRN Reason: Heartburn or Indigestion Artificial Tears (Tears Naturale) 0 drop EA EYE PRN PRN PRN Reason: Dry Eyes Aspirin (Ecotrin) 81 mg PO DAILY [facility] Last Admin: 03/07/18 08:03 Dose: 81 mg Calcium/Vitamin D (Caltrate 600 + Vit D) 1 tab PO BID-[facility] Last Admin: 03/07/18 08:03 Dose: 1 tab Cholecalciferol (Vitamin D3) 1,000 units PO DAILY [facility] Last Admin: 03/07/18 08:04 Dose: 1,000 units Cyanocobalamin (Vitamin B-12) 1,000 mcg PO DAILY [facility] Last Admin: 03/07/18 08:04 Dose: 1,000 mcg Dextrose/Water (Dextrose 50%) 25 gm SLOW IVP PRN PRN PRN Reason: Hypoglycemia Dutasteride (Avodart) 0.5 mg PO HS [facility] Last Admin: 03/06/18 20:03 Dose: 0.5 mg Emollient Cream (Hydrocerin Cream) 0 gm TOP BIDPRN PRN PRN Reason: Dry Skin Enoxaparin Sodium (Lovenox) 40 mg SC 0900 [facility] Last Admin: 03/07/18 08:03 Dose: 40 mg Famotidine (Pepcid) 20 mg PO BIDPRN PRN PRN Reason: Heartburn or Indigestion Folic Acid (Folvite) 1 mg PO DAILY [facility] Last Admin: 03/07/18 08:03 Dose: 1 mg Furosemide (Lasix) 20 mg PO DAILY [facility] Last Admin: 03/07/18 08:03 Dose: 20 mg Glucagon (Glucagon) 1 mg IM PRN PRN PRN Reason: Hypoglycemia Guaifenesin (Robitussin Sf) 200 mg PO Q4H PRN PRN Reason: Cough Hydralazine HCl (Apresoline) 10 mg SLOW IVP Q4H PRN PRN Reason: Systolic BP > 180 Dextrose/Water (D5w) 1,000 mls @ 0 mls/hr IV .Q0M PRN; As Directed PRN Reason: Hypoglycemia Ibuprofen (Motrin) 600 mg PO Q8H PRN PRN Reason: Pain Last Admin: 03/06/18 20:03 Dose: 600 mg Levothyroxine Sodium (Synthroid) 50 mcg PO 0600 [facility] Last Admin: 03/07/18 06:49 Dose: 50 mcg Loratadine (Claritin) 10 mg PO DAILYPRN PRN PRN Reason: Sinus Symptoms Magnesium Hydroxide (Milk Of Magnesium) 30 ml PO DAILYPRN PRN PRN Reason: Constipation Magnesium Oxide (Magnesium Oxide) 500 mg PO DAILY [facility] Last Admin: 03/07/18 08:03 Dose: 500 mg Ondansetron HCl (Zofran Odt) 4 mg PO Q6H PRN PRN Reason: Nausea/Vomiting Ondansetron HCl (Zofran) 4 mg IVP Q6H PRN PRN Reason: Nausea/Vomiting Brimonidine ( Alphagan P 0.1%) Opth Soln 0 each EA EYE QPM [facility] Last Admin: 03/06/18 20:12 Dose: 1 each Brinzolamide (Azopt) (1% Opth Susp) 0 each EA EYE BID [facility] Last Admin: 03/07/18 08:53 Dose: 1 each Latanoprost (Xalatan () 0.005% Opth Soln) 0 each EA EYE QPM [facility] Last Admin: 03/06/18 20:12 Dose: 1 each Pilocarpine (Isopto Carpine) 1% Opth Soln 0 each R EYE QID [facility] Last Admin: 03/07/18 08:53 Dose: 1 each Propylene Glycol ( Systane Balance) Eye Drops 0 each EA EYE BID [facility] Last Admin: 03/07/18 08:53 Dose: 1 each Phenol (Chloraseptic [place] 180 Ml Bot) 0 ml PO PRN PRN PRN Reason: Sore Throat Polyethylene Glycol (Miralax) 17 gm PO DAILY [facility] Last Admin: 03/07/18 08:03 Dose: 17 gm Potassium Chloride (Klor-Con 10) 10 meq PO QAM-WM [facility] Last Admin: 03/07/18 08:03 Dose: 10 meq Ranolazine (Ranexa) 500 mg PO DAILY [facility] Last Admin: 03/07/18 08:04 Dose: 500 mg Senna (Senokot) 2 tab PO HSPRN PRN PRN Reason: Constipation Senna/Docusate Sodium (Senokot S) 1 tab PO BID [facility] Last Admin: 03/07/18 08:04 Dose: 1 tab Sodium Chloride (Flush - Normal Saline) 10 ml IVF PRN PRN PRN Reason: Saline Flush Sodium Chloride ([place] Nasal [place] 0.65%) 0 ml EA NARE QIDPRN PRN PRN Reason: Nasal Congestion Tamsulosin HCl (Flomax) 0.4 mg PO [facility] Last Admin: 03/06/18 20:03 Dose: 0.4 mg Zolpidem Tartrate (Ambien) 5 mg PO HSPRN PRN PRN Reason: Insomnia Last Admin: 03/06/18 22:37 Dose: 5 mg
[2018-03-07] MEDS ORDERED: Amlodipine 5 MG TAB PO SCH (12:45)
--- NOTE | 2018-03-07 16:34 | PRG ---
DATE OF SERVICE: 03/07/2018 ATTENDING PHYSICIAN: Dr. Mart. SUBJECTIVE: Mr. Sheth is an 82-year-old male who is status post ground level fall. He has an L1 compression fracture. He was seen by Neurosurgery who recommended TLSO brace placement. He was admitted to the hospital on the surgical floor for pain control and physical therapy. Rehab referral was also made. He has been stable on the floor without issue. He has been mobilizing with physical and occupational therapy. Case management has been consulted for discharge planning. Hospital medicine is following for medical comanagement. OBJECTIVE: VITAL SIGNS: Temperature 97.7, pulse 64, blood pressure 170/83, respirations 18 , O2 sat 94% room air. GENERAL: Elderly male, lying in bed, in no acute distress. HEENT: Atraumatic, normocephalic. RESPIRATORY/CHEST: Bilateral breath sounds clear. No respiratory distress. CARDIOVASCULAR: Regular rate and rhythm. Heart sounds normal. ABDOMEN: Soft, nontender, nondistended. GENITOURINARY: Nolan in place with clear yellow urine. EXTREMITIES: Moves all extremities. Cap refill brisk. Neurovascularly intact. NEUROLOGIC: GCS 15. Awake, alert, oriented x3. LABORATORY DATA: CBC: WBC 7.6, RBC 4.30, hemoglobin 14.2, hematocrit 42.7, platelets 11.7. Chemistry: Sodium 137, potassium 3.8, chloride 107, carbon dioxide 21, BUN 14, creatinine 0.78, glucose 129, calcium 9.2, phosphorus 3.5, magnesium 2.2. ASSESSMENT: 1. Status post ground level fall. 2. L1 compression fracture. 3. Acute traumatic pain, improving. 4. Generalized debility. 5. History of chronic back pain and multiple falls over the past 4 years. PLAN: 1. Continue physical and occupational therapy. 2. TLSO brace for all out of bed activities. 3. Case management for discharge planning. Anticipate patient will need rehabilitation. Rehabilitation referral was made when patient was in ER. Anticipate shut off worker will continue to follow next week. 4. Continue oral analgesia for pain control. 5. Regular diet. 6. Appreciate Hospital Medicine assistance. 7. Add suppository to bowel regimen, pt with chronic constipation, uses home suppository. 8. Encourage pulmonary toilet/IS. 9. Lovenox for DVT prophylaxis. 10. Pepcid for gastritis prophylaxis. This patient was reviewed with Dr. Mart who agrees with plan. [facility]
[2018-03-07] MEDS: LATANOPROST 0.005% EA EYE SCH (21:04)
[2018-03-07] MEDS: BRIMONIDINE EA EYE SCH (21:04)
[2018-03-07] MEDS: Dutasteride 0.5 MG CAP PO SCH (21:04)
[2018-03-07] MEDS: Tamsulosin HCl 0.4 MG CAP PO SCH (21:05)
[2018-03-07] MEDS: Acetaminophen 500 MG TAB PO PRN (21:05)
[2018-03-07] MEDS: Zolpidem Tartrate 5 MG TAB PO PRN (22:11)
[2018-03-08 00:54] VITALS: BMI 27.1
[2018-03-08] MEDS: Ibuprofen 600 MG TAB PO PRN (06:23)
[2018-03-08] MEDS: Levothyroxine Sodium 50 MCG TAB PO SCH ×2 (06:23→07:44)
[2018-03-08] MEDS ORDERED: Haloperidol Lactate 5 MG/ML VIAL ONE (06:40)
--- NOTE | 2018-03-08 07:55 | PRG ---
DATE OF SERVICE: 03/08/2018 ATTENDING PHYSICIAN: Dr. Mart. SUBJECTIVE: Mr. Sheth is an 82-year-old male who is status post ground level fall. He has an L1 co mpression fracture. He was seen by Neurosurgery who recommended TLSO brace placement. He was admitt ed to the hospital on the surgical floor for pain control and physical therapy. Rehab referral was a lso made. He has been stable in the floor without issue. He has been mobilizing with physical and o ccupational therapy. Case management has been consulted for discharge planning. He was seen this mo rning on the surgical floor. Nursing staff is reporting that he has not slept all night and has beco me agitated this morning. He has been given Ambien in the past 3 nights, but has still had episodes of delirium and agitation during the night. Vital signs remained stable. OBJECTIVE: VITAL SIGNS: Temperature 97.4, pulse 61, respirations 16, O2 sat 96% on room air, blood pressure 161 /82. GENERAL: Elderly male lying in bed in no acute distress. HEENT: Atraumatic, normocephalic. RESPIRATORY/CHEST: Bilateral breath sounds clear. No respiratory distress. CARDIOVASCULAR: Regular rate and rhythm. Heart sounds normal. ABDOMEN: Soft, nontender, nondistended. EXTREMITIES: Moves all extremities well. Cap refill brisk. Neurovascularly intact. NEUROLOGIC: GCS 14, awake, alert, confused this morning. ASSESSMENT: 1. Status post ground level fall. 2. L1 compression fracture. 3. Acute traumatic pain, improving. 4. Generalized debility. 5. History of chronic back pain and multiple falls over the past 4 years. 6. Nocturnal delirium/sundowning. 7. Follow the hospital Medicine for comanagement. PLAN: 1. Continue physical and occupational therapy. 2. TLSO brace for all out of bed activities. 3. Case management for discharge planning. Anticipate patient will need rehabilitation. 4. Continue oral analgesia for pain control. 5. Regular diet. 6. Patient now having bowel movements. Bowel protocol as needed. 7. Encourage pulmonary toilet, incentive spirometry. 8. Lovenox for deep venous thrombosis prophylaxis. 9. Pepcid for gastritis prophylaxis. 10. Limit amount of nocturnal stimulation. The patient was reviewed with Dr. Mart who agrees with plan.
[2018-03-08] MEDS ORDERED: Amlodipine 5 MG TAB PO SCH ×2 (09:00→14:30)
[2018-03-08] MEDS: Polyethylene Glycol 3350 17 GM Packet PO SCH (09:10)
[2018-03-08] MEDS: Calcium Carbonate + Vit D 1 TAB PO SCH ×2 (09:14→17:15)
[2018-03-08] MEDS: Potassium Chloride 10 MEQ TAB PO SCH (09:14)
[2018-03-08] MEDS: Magnesium Oxide 250 MG TAB PO SCH (09:16)
[2018-03-08] MEDS: Folic Acid 1 MG TAB PO SCH (09:16)
[2018-03-08] MEDS: Furosemide 20 MG TAB PO SCH (09:17)
[2018-03-08] MEDS: Senokot S 8.6-50 MG TAB PO SCH ×2 (09:17→20:38)
[2018-03-08] MEDS: Cyanocobalamin (Vitamin B-12) 1,000 MCG TAB PO SCH (09:17)
[2018-03-08] MEDS: Aspirin 81 mg Enteric Coated Tablet PO SCH (09:18)
[2018-03-08] MEDS: BRINZOLAMIDE 1% EA EYE SCH ×2 (09:24→20:39)
[2018-03-08] MEDS: OPTH EA EYE SCH ×4 (09:24→20:39)
[2018-03-08] MEDS: PILOCARPINE 1% R EYE SCH ×4 (09:25→20:39)
[2018-03-08] MEDS: [UNRECOGNIZED DRUG - OTHER] EA EYE SCH ×2 (09:25→20:39)
[2018-03-08] MEDS: OPTH R EYE SCH ×4 (09:25→20:39)
[2018-03-08] MEDS: Enoxaparin Sodium 40 MG/0.4 ML SYRINGE SC SCH (09:30)
[2018-03-08 09:54] LABS: Bilirubin Negative (Negative); Blood, Urine Negative (Negative); Clarity CLOUDY (Clear); Glucose, Urine (Dipstick) Negative (Negative); Leukocyte Negative (Negative); Nitrite Negative (Negative); Protein, Urine (Dipstick) Negative (Neg-Trace); Specific Gravity, Urine 1.016 (1.002-1.036)
[2018-03-08 09:57] LABS: Bacteria/HPF None Seen HPF (None Seen); Hyaline Casts/LPF 0-3 HYALINE CAST LPF (0-3 Hyaline); Pathc Cast-AUWi Flag 0.14 (0-2.49); RBC/HPF 0-3 HPF (0-3); Squamous Epithelial None Seen HPF (0-3); WBC/HPF 0-3 HPF (0-3)
[2018-03-08] MEDS: Acetaminophen 500 MG TAB PO PRN ×2 (09:59→20:37)
--- NOTE | 2018-03-08 14:20 | PDOC.PN ---
- Subjective Encounter Start Date: 03/08/18 Encounter Start Time: 09:00 Pt seen for followup re; delirium. Denies chest pain or shortness of breath. Reports he did not sleep well. reports he was confused and agitated at night. - Objective Resuscitation Status: Resuscitation Status DNR:Do Not Resuscitate MAR Reviewed: Yes Vital Signs & Weight: Vital Signs (12 hours) Temp Pulse Resp BP Pulse Ox 03/08/18 11:32 97.4 F L 65 16 152/69 H 94 L 03/08/18 10:47 97.5 F L 81 16 152/84 H 96 03/08/18 10:09 61 03/08/18 08:00 97.4 F L 65 16 03/08/18 04:00 97.4 F L 61 16 96 Weight Weight 182 lb I&O: 03/07/18 03/08/18 03/09/18 06:59 06:59 06:59 Intake Total 2520 250 Output Total 2825 1950 390 Balance -305 -5933 -390 Result Diagrams: 03/08/18 14:24 03/08/18 14:24 Additional Labs: Labs reviewed by me Phys Exam - Physical Examination Constitutional: NAD HEENT: moist MMs Neck: supple Respiratory: clear to auscultation bilateral Cardiovascular: RRR Gastrointestinal: soft Neurological: moves all 4 limbs Psychiatric: normal affect Deviation from normal: Oriented to person and place only Dx/Plan (1) Delirium Code(s): R41.0 - DISORIENTATION, UNSPECIFIED Status: Acute Comment: Improved , no clear etiology. Discontinue Ambien, start melatonin PRN for sleep. Supplement thiamine. [place] patient to surroundings. (2) Hypertension Code(s): I10 - ESSENTIAL (PRIMARY) HYPERTENSION Status: Chronic Qualifiers: Comment: BP elevated, increase amlodipine to 5 mg daily. (3) Hypothyroidism Code(s): E03.9 - HYPOTHYROIDISM, UNSPECIFIED Status: Chronic Comment: stable (4) CAD (coronary artery disease) Code(s): I25.10 - ATHSCL HEART DISEASE OF [place] CORONARY ARTERY W/O ANG PCTRS Status: Chronic Qualifiers: Comment: stable (5) GERD (gastroesophageal reflux disease) Code(s): K21.9 - GASTRO-ESOPHAGEAL REFLUX DISEASE WITHOUT ESOPHAGITIS Status: Chronic Comment: stable - Plan * . Review of Systems - Review of Systems Constitutional: negative: fever, chills, sweats, weakness, malaise Cardiovascular: negative: chest pain, palpitations, orthopnea, paroxysmal nocturnal dyspnea, edema, light headedness Neurological: Confusion, Other (agitation) - Medications/Allergies Allergies/Adverse Reactions: Allergies Allergy/AdvReac Type Severity Reaction Status Date / Time Penicillins Allergy Intermediate Rash Verified 03/05/18 17:43 Iodinated Contrast- Oral and Allergy Verified 03/05/18 17:43 IV Dye [Iodinated Contrast Media - IV Dye] levofloxacin [From Levaquin] Allergy Rash Verified 03/05/18 17:43 Medications: Current Medications Acetaminophen (Tylenol) 1,000 mg PO Q6H PRN PRN Reason: Moderate to Severe Pain (6-10) Last Admin: 03/08/18 09:59 Dose: 1,000 mg Al Hydroxide/Mg Hydroxide (Maalox) 15 ml PO Q4H PRN PRN Reason: Heartburn or Indigestion Amlodipine Besylate (Norvasc) 2.5 mg PO NOW [facility] Stop: 03/08/18 16:30 Amlodipine Besylate (Norvasc) 5 mg PO DAILY [facility] Artificial Tears (Tears Naturale) 0 drop EA EYE PRN PRN PRN Reason: Dry Eyes Aspirin (Ecotrin) 81 mg PO DAILY [facility] Last Admin: 03/08/18 09:18 Dose: 81 mg Calcium/Vitamin D (Caltrate 600 + Vit D) 1 tab PO BID-[facility] Last Admin: 03/08/18 09:14 Dose: 1 tab Cholecalciferol (Vitamin D3) 1,000 units PO DAILY [facility] Last Admin: 03/08/18 09:17 Dose: 1,000 units Cyanocobalamin (Vitamin B-12) 1,000 mcg PO DAILY [facility] Last Admin: 03/08/18 09:17 Dose: 1,000 mcg Dextrose/Water (Dextrose 50%) 25 gm SLOW IVP PRN PRN PRN Reason: Hypoglycemia Dutasteride (Avodart) 0.5 mg PO HS [facility] Last Admin: 03/07/18 21:04 Dose: 0.5 mg Emollient Cream (Hydrocerin Cream) 0 gm TOP BIDPRN PRN PRN Reason: Dry Skin Enoxaparin Sodium (Lovenox) 40 mg SC 0900 [facility] Last Admin: 03/08/18 09:30 Dose: 40 mg Famotidine (Pepcid) 20 mg PO BIDPRN PRN PRN Reason: Heartburn or Indigestion Folic Acid (Folvite) 1 mg PO DAILY [facility] Last Admin: 03/08/18 09:16 Dose: 1 mg Furosemide (Lasix) 20 mg PO DAILY [facility] Last Admin: 03/08/18 09:17 Dose: 20 mg Glucagon (Glucagon) 1 mg IM PRN PRN PRN Reason: Hypoglycemia Guaifenesin (Robitussin Sf) 200 mg PO Q4H PRN PRN Reason: Cough Hydralazine HCl (Apresoline) 10 mg SLOW IVP Q4H PRN PRN Reason: Systolic BP > 180 Dextrose/Water (D5w) 1,000 mls @ 0 mls/hr IV .Q0M PRN; As Directed PRN Reason: Hypoglycemia Ibuprofen (Motrin) 600 mg PO Q8H PRN PRN Reason: Pain Last Admin: 03/06/18 20:03 Dose: 600 mg Levothyroxine Sodium (Synthroid) 50 mcg PO 0600 [facility] Last Admin: 03/08/18 07:44 Dose: Not Given Loratadine (Claritin) 10 mg PO DAILYPRN PRN PRN Reason: Sinus Symptoms Magnesium Hydroxide (Milk Of Magnesium) 30 ml PO DAILYPRN PRN PRN Reason: Constipation Magnesium Oxide (Magnesium Oxide) 500 mg PO DAILY [facility] Last Admin: 03/08/18 09:16 Dose: 500 mg Ondansetron HCl (Zofran Odt) 4 mg PO Q6H PRN PRN Reason: Nausea/Vomiting Ondansetron HCl (Zofran) 4 mg IVP Q6H PRN PRN Reason: Nausea/Vomiting Brimonidine ( Alphagan P 0.1%) Opth Soln 0 each EA EYE QPM [facility] Last Admin: 03/07/18 21:04 Dose: 1 each Brinzolamide (Azopt) (1% Opth Susp) 0 each EA EYE BID [facility] Last Admin: 03/08/18 09:24 Dose: 1 each Latanoprost (Xalatan () 0.005% Opth Soln) 0 each EA EYE QPM [facility] Last Admin: 03/07/18 21:04 Dose: 1 each Pilocarpine (Isopto Carpine) 1% Opth Soln 0 each R EYE QID [facility] Last Admin: 03/08/18 09:25 Dose: 1 each Propylene Glycol ( Systane Balance) Eye Drops 0 each EA EYE BID [facility] Last Admin: 03/08/18 09:25 Dose: 1 each Phenol (Chloraseptic [place] 180 Ml Bot) 0 ml PO PRN PRN PRN Reason: Sore Throat Polyethylene Glycol (Miralax) 17 gm PO DAILY [facility] Last Admin: 03/08/18 09:10 Dose: 17 gm Potassium Chloride (Klor-Con 10) 10 meq PO QAM-WM [facility] Last Admin: 03/08/18 09:14 Dose: 10 meq Ranolazine (Ranexa) 500 mg PO DAILY [facility] Last Admin: 03/08/18 09:17 Dose: 500 mg Senna (Senokot) 2 tab PO HSPRN PRN PRN Reason: Constipation Senna/Docusate Sodium (Senokot S) 1 tab PO BID [facility] Last Admin: 03/08/18 09:17 Dose: 1 tab Sodium Chloride (Flush - Normal Saline) 10 ml IVF PRN PRN PRN Reason: Saline Flush Sodium Chloride ([place] Nasal [place] 0.65%) 0 ml EA NARE QIDPRN PRN PRN Reason: Nasal Congestion Tamsulosin HCl (Flomax) 0.4 mg PO HS [facility] Last Admin: 03/07/18 21:05 Dose: 0.4 mg Zolpidem Tartrate (Ambien) 5 mg PO HSPRN PRN PRN Reason: Insomnia Last Admin: 03/07/18 22:11 Dose: 5 mg
[2018-03-08] MEDS ORDERED: Melatonin 3 MG TAB PO PRN (14:22)
[2018-03-08 14:38] LABS: #Eosinphils 0.3 thou/uL (0.0-0.7); #Lymphocytes 1.3 thou/uL (1.20-3.40); #Monocytes 0.9 thou/uL (0.11-0.59); #Neutrophils 4.6 thou/uL (1.40-6.50); %Basophils 0.6 % (0.0-1.0); %Eosinophils 3.9 % (0.0-10.0); %Monocytes 12.9 % (0.0-10.0); %Neutrophils 64.7 % (42.0-75.0); Hemoglobin 15.4 g/dL (14.0-18.0); Mean Corpuscular HGB CONC 33.1 g/dL (32.0-36.0); Mean Corpuscular Hemoglobin 33.5 pg (27.0-31.0); Mean Platelet Volume 8.1 fL (7.4-10.4); Platelet Count 341 thou/uL (130-400); RBC Distribution Width 11.7 % (11.5-14.5); White Blood Cell (WBC) Count 7.1 thou/uL (4.8-10.8)
[2018-03-08 14:57] LABS: Anion Gap 13 mmol/L (10-20); BUN (Urea Nitrogen) 14 mg/dL (8.4-25.7); Calc. Creatinine Clearance 76 mL/min (70-130); Calcium 10.1 mg/dL (7.8-10.44); Carbon Dioxide 29 mmol/L (23-31); Chloride 103 mmol/L (98-107); Estimated GFR-MDRD 87; Glucose 94 mg/dL (83-110); Magnesium 2.4 mg/dL (1.6-2.6); Phosphorus 4.2 mg/dL (2.3-4.7); Potassium 3.7 mmol/L (3.5-5.1); Sodium 141 mmol/L (136-145)
[2018-03-08] MEDS: Tamsulosin HCl 0.4 MG CAP PO SCH (20:37)
[2018-03-08] MEDS: BRIMONIDINE EA EYE SCH (20:38)
[2018-03-08] MEDS: Dutasteride 0.5 MG CAP PO SCH (20:38)
[2018-03-08] MEDS: LATANOPROST 0.005% EA EYE SCH (20:39)
[2018-03-09] MEDS: Levothyroxine Sodium 50 MCG TAB PO SCH (05:14)
[2018-03-09] MEDS: Polyethylene Glycol 3350 17 GM Packet PO SCH (08:59)
[2018-03-09] MEDS: Enoxaparin Sodium 40 MG/0.4 ML SYRINGE SC SCH (08:59)
[2018-03-09] MEDS: Calcium Carbonate + Vit D 1 TAB PO SCH ×2 (08:59→16:45)
[2018-03-09] MEDS: Magnesium Oxide 250 MG TAB PO SCH (08:59)
[2018-03-09] MEDS: Cyanocobalamin (Vitamin B-12) 1,000 MCG TAB PO SCH (09:00)
[2018-03-09] MEDS: Furosemide 20 MG TAB PO SCH (09:00)
[2018-03-09] MEDS: Senokot S 8.6-50 MG TAB PO SCH ×2 (09:00→19:57)
[2018-03-09] MEDS: Folic Acid 1 MG TAB PO SCH (09:00)
[2018-03-09] MEDS: Amlodipine 5 MG TAB PO SCH (09:00)
[2018-03-09] MEDS: Potassium Chloride 10 MEQ TAB PO SCH (09:00)
[2018-03-09] MEDS: Aspirin 81 mg Enteric Coated Tablet PO SCH (09:00)
[2018-03-09] MEDS: BRINZOLAMIDE 1% EA EYE SCH ×2 (09:01→19:58)
[2018-03-09] MEDS: OPTH EA EYE SCH ×4 (09:01→19:58)
[2018-03-09] MEDS: [UNRECOGNIZED DRUG - OTHER] EA EYE SCH ×2 (09:01→19:58)
[2018-03-09] MEDS: OPTH R EYE SCH ×4 (09:01→19:58)
[2018-03-09] MEDS: PILOCARPINE 1% R EYE SCH ×4 (09:01→19:58)
--- NOTE | 2018-03-09 17:05 | PDOC.PN ---
- Subjective Encounter Start Date: 03/09/18 Encounter Start Time: 08:20 Pt seen for followup re: delirium. Had a couple of episodes of confusion overnight. Denies chest pain, shortness of breath, fevers or chills. No nausea or vomiting. - Objective Resuscitation Status: Resuscitation Status DNR:Do Not Resuscitate MAR Reviewed: Yes Vital Signs & Weight: Vital Signs (12 hours) Temp Pulse Resp BP BP Pulse Ox 03/09/18 15:26 98.0 F 60 16 153/80 H 94 L 03/09/18 09:00 97.7 F 62 16 138/72 03/09/18 07:58 97.7 F 62 16 138/72 94 L Weight Weight 182 lb I&O: 03/08/18 03/09/18 03/10/18 06:59 06:59 06:59 Intake Total 250 500 Output Total 1950 2405 Balance -1700 -1905 Result Diagrams: 03/08/18 14:24 03/08/18 14:24 Additional Labs: Labs reviewed by me Phys Exam - Physical Examination Constitutional: NAD HEENT: moist MMs Neck: supple Respiratory: clear to auscultation bilateral Gastrointestinal: soft Neurological: moves all 4 limbs Psychiatric: normal affect Dx/Plan (1) Delirium Code(s): R41.0 - DISORIENTATION, UNSPECIFIED Status: Acute Comment: Improving. Continue to orient patient. (2) Hypertension Code(s): I10 - ESSENTIAL (PRIMARY) HYPERTENSION Status: Chronic Qualifiers: Comment: Amlodipine dose increased yesterday, continue to monitor vital signs and titrate antihypertensives as needed (3) Hypothyroidism Code(s): E03.9 - HYPOTHYROIDISM, UNSPECIFIED Status: Chronic Comment: stable (4) CAD (coronary artery disease) Code(s): I25.10 - ATHSCL HEART DISEASE OF [place] CORONARY ARTERY W/O ANG PCTRS Status: Chronic Qualifiers: Comment: stable (5) GERD (gastroesophageal reflux disease) Code(s): K21.9 - GASTRO-ESOPHAGEAL REFLUX DISEASE WITHOUT ESOPHAGITIS Status: Chronic Comment: stable - Plan * . Review of Systems - Medications/Allergies Allergies/Adverse Reactions: Allergies Allergy/AdvReac Type Severity Reaction Status Date / Time Penicillins Allergy Intermediate Rash Verified 03/05/18 17:43 Iodinated Contrast- Oral and Allergy Verified 03/05/18 17:43 IV Dye [Iodinated Contrast Media - IV Dye] levofloxacin [From Levaquin] Allergy Rash Verified 03/05/18 17:43 Medications: Current Medications Acetaminophen (Tylenol) 1,000 mg PO Q6H PRN PRN Reason: Moderate to Severe Pain (6-10) Last Admin: 03/08/18 20:37 Dose: 1,000 mg Al Hydroxide/Mg Hydroxide (Maalox) 15 ml PO Q4H PRN PRN Reason: Heartburn or Indigestion Amlodipine Besylate (Norvasc) 5 mg PO DAILY [facility] Last Admin: 03/09/18 09:00 Dose: 5 mg Artificial Tears (Tears Naturale) 0 drop EA EYE PRN PRN PRN Reason: Dry Eyes Aspirin (Ecotrin) 81 mg PO DAILY [facility] Last Admin: 03/09/18 09:00 Dose: 81 mg Calcium/Vitamin D (Caltrate 600 + Vit D) 1 tab PO BID-WM [facility] Last Admin: 03/09/18 16:45 Dose: 1 tab Cholecalciferol (Vitamin D3) 1,000 units PO DAILY [facility] Last Admin: 03/09/18 09:00 Dose: 1,000 units Cyanocobalamin (Vitamin B-12) 1,000 mcg PO DAILY [facility] Last Admin: 03/09/18 09:00 Dose: 1,000 mcg Dextrose/Water (Dextrose 50%) 25 gm SLOW IVP PRN PRN PRN Reason: Hypoglycemia Dutasteride (Avodart) 0.5 mg PO HS [facility] Last Admin: 03/08/18 20:38 Dose: 0.5 mg Emollient Cream (Hydrocerin Cream) 0 gm TOP BIDPRN PRN PRN Reason: Dry Skin Enoxaparin Sodium (Lovenox) 40 mg SC 0900 [facility] Last Admin: 03/09/18 08:59 Dose: 40 mg Famotidine (Pepcid) 20 mg PO BIDPRN PRN PRN Reason: Heartburn or Indigestion Folic Acid (Folvite) 1 mg PO DAILY [facility] Last Admin: 03/09/18 09:00 Dose: 1 mg Furosemide (Lasix) 20 mg PO DAILY [facility] Last Admin: 03/09/18 09:00 Dose: 20 mg Glucagon (Glucagon) 1 mg IM PRN PRN PRN Reason: Hypoglycemia Guaifenesin (Robitussin Sf) 200 mg PO Q4H PRN PRN Reason: Cough Hydralazine HCl (Apresoline) 10 mg SLOW IVP Q4H PRN PRN Reason: Systolic BP > 180 Dextrose/Water (D5w) 1,000 mls @ 0 mls/hr IV .Q0M PRN; As Directed PRN Reason: Hypoglycemia Ibuprofen (Motrin) 600 mg PO Q8H PRN PRN Reason: Pain Last Admin: 03/06/18 20:03 Dose: 600 mg Levothyroxine Sodium (Synthroid) 50 mcg PO 0600 [facility] Last Admin: 03/09/18 05:14 Dose: 50 mcg Loratadine (Claritin) 10 mg PO DAILYPRN PRN PRN Reason: Sinus Symptoms Magnesium Hydroxide (Milk Of Magnesium) 30 ml PO DAILYPRN PRN PRN Reason: Constipation Magnesium Oxide (Magnesium Oxide) 500 mg PO DAILY [facility] Last Admin: 03/09/18 08:59 Dose: 500 mg Melatonin (Melatonin) 3 mg PO HS PRN PRN Reason: Insomnia Ondansetron HCl (Zofran Odt) 4 mg PO Q6H PRN PRN Reason: Nausea/Vomiting Ondansetron HCl (Zofran) 4 mg IVP Q6H PRN PRN Reason: Nausea/Vomiting Brimonidine ( Alphagan P 0.1%) Opth Soln 0 each EA EYE QPM [facility] Last Admin: 03/08/18 20:38 Dose: 1 each Brinzolamide (Azopt) (1% Opth Susp) 0 each EA EYE BID [facility] Last Admin: 03/09/18 09:01 Dose: 1 each Latanoprost (Xalatan () 0.005% Opth Soln) 0 each EA EYE QPM [facility] Last Admin: 03/08/18 20:39 Dose: 1 each Pilocarpine (Isopto Carpine) 1% Opth Soln 0 each R EYE QID [facility] Last Admin: 03/09/18 16:48 Dose: 1 each Propylene Glycol ( Systane Balance) Eye Drops 0 each EA EYE BID [facility] Last Admin: 03/09/18 09:01 Dose: 1 each Phenol (Chloraseptic [place] 180 Ml Bot) 0 ml PO PRN PRN PRN Reason: Sore Throat Polyethylene Glycol (Miralax) 17 gm PO DAILY [facility] Last Admin: 03/09/18 08:59 Dose: 17 gm Potassium Chloride (Klor-Con 10) 10 meq PO QAM-WM [facility] Last Admin: 03/09/18 09:00 Dose: 10 meq Ranolazine (Ranexa) 500 mg PO DAILY [facility] Last Admin: 03/09/18 09:00 Dose: 500 mg Senna (Senokot) 2 tab PO HSPRN PRN PRN Reason: Constipation Senna/Docusate Sodium (Senokot S) 1 tab PO BID [facility] Last Admin: 03/09/18 09:00 Dose: 1 tab Sodium Chloride (Flush - Normal Saline) 10 ml IVF PRN PRN PRN Reason: Saline Flush Sodium Chloride ([place] Nasal [place] 0.65%) 0 ml EA NARE QIDPRN PRN PRN Reason: Nasal Congestion Tamsulosin HCl (Flomax) 0.4 mg PO [facility] Last Admin: 03/08/18 20:37 Dose: 0.4 mg Thiamine HCl (Thiamine) 100 mg PO DAILY [facility] Last Admin: 03/09/18 09:00 Dose: 100 mg
--- NOTE | 2018-03-09 17:05 | PRG ---
DATE OF SERVICE: 03/09/2018 SUBJECTIVE: The patient is an 82-year-old man who is currently on the surgical floor. He is status post ground level fall in which he sustained an L1 compression fracture. The patient was evaluated b y Neurosurgery and they recommended that he was treated with TLSO brace as this was a nonoperative in jury. The patient is admitted to the surgical floor for pain control and placement. The patient has been working with physical and occupational therapy and is doing well once he is assisted up and is able to have his brace placed on him. This morning, the patient is awake, will respond to verbal sti muli and answers simple questions and appears to be at baseline per his who was at bedside. PHYSICAL EXAMINATION: VITAL SIGNS: Temperature is 97.7, heart rate 62, blood pressure 138/72, respirations 16, oxygen satu ration 94% on room air. GENERAL: The patient is lying in bed. He is conversant with simple commands and again his stat es this is his baseline. HEENT: Unremarkable. LUNGS: Clear to auscultation with moderate inspiratory and expiratory effort. HEART: Regular rate and rhythm. ABDOMEN: Soft, flat, nontender with active bowel sounds. EXTREMITIES: Neurovascularly intact x4. LABORATORY DATA AND IMAGING DATA: There are no labs or radiographs to review this morning. ASSESSMENT AND PLAN: 1. Status post ground level fall. 2. L1 compression fracture treated with TLSO brace. 3. Alzheimer's/dementia. PLAN: Will be to continue supportive care and await final placement decision. The examination and e valuation were done with Dr. Betancourt this morning during rounds.
[2018-03-09] MEDS: Tamsulosin HCl 0.4 MG CAP PO SCH (19:57)
[2018-03-09] MEDS: BRIMONIDINE EA EYE SCH (19:57)
[2018-03-09] MEDS: Dutasteride 0.5 MG CAP PO SCH (19:57)
[2018-03-09] MEDS: Acetaminophen 500 MG TAB PO PRN (19:57)
[2018-03-09] MEDS: LATANOPROST 0.005% EA EYE SCH (19:58)
[2018-03-10] MEDS: Levothyroxine Sodium 50 MCG TAB PO SCH (05:31)
[2018-03-10] MEDS: Polyethylene Glycol 3350 17 GM Packet PO SCH (10:17)
[2018-03-10] MEDS: Enoxaparin Sodium 40 MG/0.4 ML SYRINGE SC SCH (10:17)
[2018-03-10] MEDS: Potassium Chloride 10 MEQ TAB PO SCH (10:18)
[2018-03-10] MEDS: Magnesium Oxide 250 MG TAB PO SCH (10:18)
[2018-03-10] MEDS: Senokot S 8.6-50 MG TAB PO SCH ×2 (10:18→20:29)
[2018-03-10] MEDS: Calcium Carbonate + Vit D 1 TAB PO SCH ×2 (10:18→17:27)
[2018-03-10] MEDS: Furosemide 20 MG TAB PO SCH (10:19)
[2018-03-10] MEDS: Aspirin 81 mg Enteric Coated Tablet PO SCH (10:19)
[2018-03-10] MEDS: Folic Acid 1 MG TAB PO SCH (10:19)
[2018-03-10] MEDS: Amlodipine 5 MG TAB PO SCH (10:19)
[2018-03-10] MEDS: Cyanocobalamin (Vitamin B-12) 1,000 MCG TAB PO SCH (10:19)
[2018-03-10] MEDS: BRINZOLAMIDE 1% EA EYE SCH ×2 (10:20→20:30)
[2018-03-10] MEDS: OPTH EA EYE SCH ×4 (10:20→20:30)
[2018-03-10] MEDS: PILOCARPINE 1% R EYE SCH ×4 (10:21→20:30)
[2018-03-10] MEDS: [UNRECOGNIZED DRUG - OTHER] EA EYE SCH ×2 (10:21→20:30)
[2018-03-10] MEDS: OPTH R EYE SCH ×4 (10:21→20:30)
--- NOTE | 2018-03-10 11:34 | PDOC.PN ---
- Subjective Encounter Start Date: 03/10/18 Encounter Start Time: 08:45 -: old records requested/rev states that he is doing fine. he is without his hearing aides so having trouble hearing. states that he is doing better - Objective Resuscitation Status: Resuscitation Status DNR:Do Not Resuscitate Vital Signs & Weight: Vital Signs (12 hours) Temp Pulse Resp BP BP Pulse Ox 03/10/18 10:19 82 03/10/18 07:56 98.1 F 82 18 176/73 H 95 03/10/18 07:55 98.0 F 60 16 144/75 H 93 L 03/10/18 03:41 97.8 F 60 20 144/71 H 95 03/10/18 00:02 97.6 F 60 20 134/77 96 Weight Weight 182 lb I&O: 03/09/18 03/10/18 03/11/18 06:59 06:59 06:59 Intake Total 500 1220 Output Total 2405 850 Balance -1905 370 Result Diagrams: 03/08/18 14:24 03/08/18 14:24 Phys Exam - Physical Examination Constitutional: NAD HEENT: PERRLA, moist MMs, sclera anicteric Neck: no nodes, no JVD, supple Respiratory: no wheezing, no rales, no rhonchi Cardiovascular: RRR, no rub Gastrointestinal: soft, non-tender, no distention Musculoskeletal: pulses present Psychiatric: normal affect Dx/Plan (1) Delirium Code(s): R41.0 - DISORIENTATION, UNSPECIFIED Status: Acute Comment: Improving. Continue to orient patient. (2) Hypothyroidism Code(s): E03.9 - HYPOTHYROIDISM, UNSPECIFIED Status: Chronic Comment: stable (3) Asthma exacerbation Code(s): J45.901 - UNSPECIFIED ASTHMA WITH (ACUTE) EXACERBATION Status: Acute (4) Foraminal stenosis of cervical region Code(s): M99.81 - OTHER BIOMECHANICAL LESIONS OF CERVICAL REGION Status: Acute (5) S/P laminectomy Code(s): Z98.89 - OTHER SPECIFIED POSTPROCEDURAL STATES * DO NOT USE * Status : Acute (6) Hypertension Code(s): I10 - ESSENTIAL (PRIMARY) HYPERTENSION Status: Chronic Qualifiers: Comment: Amlodipine dose increased. monitor - Plan cont current plan of care, plan discussed w/ family * . increase norvasc supportive care mgmt delirium improved
--- NOTE | 2018-03-10 15:27 | PRG ---
DATE OF SERVICE: 03/10/2018 SUBJECTIVE: The patient is currently on surgical floor. He is an 82-year-old man, sustained a groun d level fall and had a L1 compression fracture, which is being treated in TLSO. He has been here in the facility for the past 6 days awaiting placement. He is able to participate with physical and occ upational therapy as long as he is assisted out of bed and to put his brace on once that is accomplis hed. He is able to walk a significant distance, but he does have difficulties with his ADLs and agai n getting up and putting his brace on. The primary [facility] He has not had any issues, tolerating a diet. His pain is controlled. PHYSICAL EXAMINATION: VITAL SIGNS: Temperature is 98.1, heart rate 82, blood pressure 176/73, respirations 18, and oxygen saturation 95% on room air. GENERAL: The patient is resting comfortably in bed. He is awake and appears to be at his baseline. He is conversant and states that he has no complaints at this time. HEENT: Unremarkable. LUNGS: Clear to auscultation with good inspiratory and expiratory effort. HEART: Regular rate and rhythm. ABDOMEN: Soft, flat, nontender with active bowel sounds. EXTREMITIES: Neurovascularly intact x4. LABORATORY DATA: There are no labs or radiographs view this morning. ASSESSMENT: 1. Status post ground level fall. 2. L1 compression fracture treating with a TLSO brace. 3. Alzheimer/Dementia. PLAN: We will be to continue supportive care and await final placement decision. The evaluation and examination were done with Dr. Betancourt this morning during rounds.
[2018-03-10] MEDS: Tamsulosin HCl 0.4 MG CAP PO SCH (20:29)
[2018-03-10] MEDS: Dutasteride 0.5 MG CAP PO SCH (20:29)
[2018-03-10] MEDS: Acetaminophen 500 MG TAB PO PRN (20:29)
[2018-03-10] MEDS: BRIMONIDINE EA EYE SCH (20:30)
[2018-03-10] MEDS: LATANOPROST 0.005% EA EYE SCH (20:30)
[2018-03-11] MEDS: Levothyroxine Sodium 50 MCG TAB PO SCH (05:39)
[2018-03-11] MEDS: Enoxaparin Sodium 40 MG/0.4 ML SYRINGE SC SCH (09:29)
[2018-03-11] MEDS: Polyethylene Glycol 3350 17 GM Packet PO SCH (09:30)
[2018-03-11] MEDS: Furosemide 20 MG TAB PO SCH (09:32)
[2018-03-11] MEDS: Aspirin 81 mg Enteric Coated Tablet PO SCH (09:32)
[2018-03-11] MEDS: Senokot S 8.6-50 MG TAB PO SCH ×2 (09:32→21:22)
[2018-03-11] MEDS: Calcium Carbonate + Vit D 1 TAB PO SCH ×2 (09:32→17:13)
[2018-03-11] MEDS: Folic Acid 1 MG TAB PO SCH (09:32)
[2018-03-11] MEDS: Amlodipine 10 MG TAB PO SCH (09:32)
[2018-03-11] MEDS: Potassium Chloride 10 MEQ TAB PO SCH (09:32)
[2018-03-11] MEDS: Magnesium Oxide 250 MG TAB PO SCH (09:33)
[2018-03-11] MEDS: Cyanocobalamin (Vitamin B-12) 1,000 MCG TAB PO SCH (09:33)
[2018-03-11] MEDS: OPTH EA EYE SCH ×4 (09:40→21:30)
[2018-03-11] MEDS: BRINZOLAMIDE 1% EA EYE SCH ×2 (09:40→21:30)
[2018-03-11] MEDS: PILOCARPINE 1% R EYE SCH ×4 (09:41→21:30)
[2018-03-11] MEDS: [UNRECOGNIZED DRUG - OTHER] EA EYE SCH ×2 (09:41→21:30)
[2018-03-11] MEDS: OPTH R EYE SCH ×4 (09:41→21:30)
--- NOTE | 2018-03-11 13:20 | PDOC.PN ---
- Subjective Encounter Start Date: 03/11/18 Encounter Start Time: 08:40 -: old records requested/rev Pt seen and examined, chart reviewed in its entirety. This is my first visit with this patient Admitted to Trauma service for fall, L1 compresison fx. consulted for medical management. BP well controlled. Pt ready and stable for discharg,e but awaiting insurance approval for IPR. no F/c,no N/V/d/C, no CP or SOB, [place] po at bedside, updated All systems reviewed and neg x as above - Objective Resuscitation Status: Resuscitation Status DNR:Do Not Resuscitate MAR Reviewed: Yes Vital Signs & Weight: Vital Signs (12 hours) Temp Pulse Resp BP BP Pulse Ox 03/11/18 11:53 97.5 F L 62 18 135/72 94 L 03/11/18 09:32 59 L 03/11/18 08:00 97.5 F L 62 18 03/11/18 07:23 97.6 F 59 L 18 144/77 H 95 03/11/18 04:04 97.8 F 63 16 133/70 95 Weight Weight 182 lb I&O: 03/10/18 03/11/18 03/12/18 06:59 06:59 06:59 Intake Total 1220 2420 840 Output Total 850 700 775 Balance 370 1720 65 Result Diagrams: 03/08/18 14:24 03/08/18 14:24 Radiology Reviewed by me: Yes EKG Reviewed by me: Yes Phys Exam - Physical Examination Constitutional: NAD HEENT: PERRLA, moist MMs, sclera anicteric, oral pharynx no lesions Neck: no nodes, no JVD, supple, full ROM Respiratory: no wheezing, no rales, no rhonchi, clear to auscultation bilateral Cardiovascular: RRR, no significant murmur, no rub Gastrointestinal: soft, non-tender, no distention, positive bowel sounds Musculoskeletal: pulses present, edema present Neurological: non-focal, normal sensation, moves all 4 limbs Lymphatic: no nodes Psychiatric: normal affect Deviation from normal: Ox2 Skin: no rash, normal turgor, cap refill <2 seconds Dx/Plan (1) Acute metabolic encephalopathy Code(s): G93.41 - METABOLIC ENCEPHALOPATHY Status: Acute Comment: seems better, says almost to baseline. to Rehab when approved (2) Hypothyroidism Code(s): E03.9 - HYPOTHYROIDISM, UNSPECIFIED Status: Chronic Qualifiers: Hypothyroidism type: acquired Qualified Code(s): E03.9 - Hypothyroidism, unspecified Comment: stable (3) Foraminal stenosis of cervical region Code(s): M99.81 - OTHER BIOMECHANICAL LESIONS OF CERVICAL REGION Status: Acute Comment: CCM, no intervention (4) Status post fall Code(s): Z91.81 - HISTORY OF FALLING Status: Acute Comment: not of cardiac origin per bark tanner. (5) CAD (coronary artery disease) Code(s): I25.10 - ATHSCL HEART DISEASE OF [place] CORONARY ARTERY W/O ANG PCTRS Status: Chronic Qualifiers: Coronary Disease-Associated Artery/Lesion type: unspecified vessel or lesion type [place] vs. transplanted heart: [place] heart Associated angina: without angina Qualified Code(s): I25.10 - Atherosclerotic heart disease of [place] coronary artery without angina pectoris Comment: stable (6) GERD (gastroesophageal reflux disease) Code(s): K21.9 - GASTRO-ESOPHAGEAL REFLUX DISEASE WITHOUT ESOPHAGITIS Status: Chronic Qualifiers: Esophagitis presence: without esophagitis Qualified Code(s): K21.9 - Gastro -esophageal reflux disease without esophagitis Comment: stable (7) Hypertension Code(s): I10 - ESSENTIAL (PRIMARY) HYPERTENSION Status: Chronic Qualifiers: Hypertension type: essential hypertension Comment: Amlodipine dose increased. monitor (8) S/P placement of cardiac pacemaker Code(s): Z95.0 - PRESENCE OF CARDIAC PACEMAKER Status: Chronic Comment: old. - Plan cont current plan of care, plan discussed w/ family, PT/OT, health and social care teacher, out of bed/ambulate * .
--- NOTE | 2018-03-11 13:56 | PRG ---
DATE OF SERVICE: 03/11/2018 SUBJECTIVE: Mr. Ferguson is an 82-year-old man who sustained a ground level fall and suffered an L1 com pression fracture which is being treated in a TLSO brace. He has been here working with physical and occupational therapy, awaiting placement in inpatient rehabilitation. He has had no issues overnigh t. He is tolerating a diet. He has pain control and currently has no complaints and is eagerly wait ing to get to rehabilitation. PHYSICAL EXAMINATION: VITAL SIGNS: Temperature is 97.6, heart rate 59, blood pressure 144/77, respirations 18, and oxygen saturation 95% on room air. GENERAL: Patient is awake, alert, and oriented. He is in a chair beside his bed. He is actually do ing leg extensions to do his own physical therapy per him. HEENT: Unremarkable. LUNGS: Clear to auscultation bilaterally with good inspiratory and expiratory effort. HEART: Regular rate and rhythm. ABDOMEN: Soft, flat, nontender. EXTREMITIES: Neurovascularly intact x4. Capillary refill is less than 3 seconds. Pulses are 2+. T he patient has his brace on and appears to be well fitting. LABORATORY DATA: There are no labs or radiographs to review this morning. ASSESSMENT AND PLAN: 1. Status post ground level fall. 2. L1 compression fracture, being treated with TLSO brace. 3. Alzheimer's/Dementia. Plan will be to continue supportive care and await for his final disposition per the choir accompanist we ex pect an answer today and/or tomorrow.
--- NOTE | 2018-03-11 16:37 | RAD ---
PORTABLE CHEST: 03/11/18 HISTORY: Chest pain. COMPARISON: 03/05/18 exam. Heart size is within normal limits for portable technique. Pacemaker is present. The lungs are clear of infiltrates. There are no signs of failure. IMPRESSION: Borderline heart size. No acute findings. POS: [facility]
[2018-03-11 16:41] LABS: #Eosinphils 0.3 thou/uL (0.0-0.7); #Lymphocytes 1.4 thou/uL (1.20-3.40); #Monocytes 0.8 thou/uL (0.11-0.59); #Neutrophils 4.5 thou/uL (1.40-6.50); %Basophils 0.1 % (0.0-1.0); %Eosinophils 4.6 % (0.0-10.0); %Lymphocytes 20.3 % (21.0-51.0); %Monocytes 11.3 % (0.0-10.0); %Neutrophils 63.6 % (42.0-75.0); Hemoglobin 15.2 g/dL (14.0-18.0); Mean Corpuscular HGB CONC 33.6 g/dL (32.0-36.0); Mean Corpuscular Hemoglobin 33.6 pg (27.0-31.0); Mean Corpuscular Volume 99.9 fl (80.0-94.0); Mean Platelet Volume 7.7 fL (7.4-10.4); Platelet Count 323 thou/uL (130-400); RBC Distribution Width 11.8 % (11.5-14.5); Red Blood Cell (RBC) Count 4.52 mill/uL (4.70-6.10)
[2018-03-11 17:08] LABS: CKMB 1.6 ng/mL (0-6.6); Troponin I Less than 0.010 ng/mL (< 0.028)
[2018-03-11 17:09] LABS: Anion Gap 13 mmol/L (10-20); BUN (Urea Nitrogen) 15 mg/dL (8.4-25.7); Calc. Creatinine Clearance 67 mL/min (70-130); Calcium 10.1 mg/dL (7.8-10.44); Carbon Dioxide 30 mmol/L (23-31); Chloride 102 mmol/L (98-107); Estimated GFR-MDRD 75; Glucose 85 mg/dL (83-110); Magnesium 2.5 mg/dL (1.6-2.6); Phosphorus 4.5 mg/dL (2.3-4.7); Sodium 141 mmol/L (136-145)
[2018-03-11] MEDS: Tamsulosin HCl 0.4 MG CAP PO SCH (21:22)
[2018-03-11] MEDS: Dutasteride 0.5 MG CAP PO SCH (21:22)
[2018-03-11] MEDS: LATANOPROST 0.005% EA EYE SCH (21:30)
[2018-03-11] MEDS: BRIMONIDINE EA EYE SCH (21:30)
[2018-03-11] MEDS ORDERED: Pilocarpine 1% Ophth Drops 15 ML BOT R EYE SCH (23:59)
[2018-03-12] MEDS ORDERED: Levothyroxine Sodium 50 MCG TAB PO SCH (06:00)
[2018-03-12] MEDS: Enoxaparin Sodium 40 MG/0.4 ML SYRINGE SC SCH (08:19)
[2018-03-12] MEDS: Polyethylene Glycol 3350 17 GM Packet PO SCH (08:19)
[2018-03-12] MEDS: Senokot S 8.6-50 MG TAB PO SCH (08:20)
[2018-03-12] MEDS: Cyanocobalamin (Vitamin B-12) 1,000 MCG TAB PO SCH (08:20)
[2018-03-12] MEDS: Potassium Chloride 10 MEQ TAB PO SCH (08:20)
[2018-03-12] MEDS: Magnesium Oxide 250 MG TAB PO SCH (08:20)
[2018-03-12] MEDS: Calcium Carbonate + Vit D 1 TAB PO SCH ×2 (08:21→16:55)
[2018-03-12] MEDS: Amlodipine 10 MG TAB PO SCH (08:21)
[2018-03-12] MEDS: OPTH R EYE SCH ×3 (08:21→16:56)
[2018-03-12] MEDS: BRINZOLAMIDE 1% EA EYE SCH (08:21)
[2018-03-12] MEDS: OPTH EA EYE SCH (08:21)
[2018-03-12] MEDS: Folic Acid 1 MG TAB PO SCH (08:21)
[2018-03-12] MEDS: PILOCARPINE 1% R EYE SCH ×3 (08:21→16:56)
[2018-03-12] MEDS: [UNRECOGNIZED DRUG - OTHER] EA EYE SCH (08:22)
[2018-03-12] MEDS ORDERED: Furosemide 20 MG TAB PO SCH (09:00)
[2018-03-12] MEDS ORDERED: Dutasteride 0.5 MG CAP PO SCH ×2 (09:00→21:00)
[2018-03-12] MEDS ORDERED: Brinzolamide 1% Ophth Soln 10 ml Bottle EA EYE SCH (09:00)
[2018-03-12 12:05] VITALS: TEMP 97.9
[2018-03-12 16:08] VITALS: BP 123/64
[2018-03-12] MEDS ORDERED: Brimonidine Tartrate 0.2% Ophth Soln 5 ml Bottle EA EYE SCH (21:00)
[2018-03-12] MEDS ORDERED: Tamsulosin HCl 0.4 MG CAP PO SCH (21:00)
[2018-03-12] MEDS ORDERED: Latanoprost 0.005% Ophth Soln 2.5 ml Bottle EA EYE SCH (21:00)
--- NOTE | 2018-03-13 04:23 | DIS ---
DATE OF ADMISSION: 03/05/2018 DATE OF DISCHARGE: 03/12/2018 ADMISSION DIAGNOSES: 1. Status post ground level fall. 2. L1 compression fracture. 3. Acute traumatic pain. 4. History of chronic back pain. 5. Multiple falls. 6. History of neuropathy. 7. Debility. 8. History of atrial fibrillation. 9. History of sleep apnea. 10. History of C-spine stenosis. 11. History of hypertension. 12. History of hypothyroidism. DISCHARGE DIAGNOSES: 1. Status post ground level fall. 2. L1 compression fracture. 3. Acute traumatic pain. 4. History of chronic back pain. 5. Multiple falls. 6. History of neuropathy. 7. Debility. 8. History of atrial fibrillation. 9. History of sleep apnea. 10. History of C-spine stenosis. 11. History of hypertension. 12. History of hypothyroidism. CONSULTANTS: [facility] for medical management. Dr. Jaramillo, Neurosurgery. HOSPITAL COURSE: Marty Sheth is an 82-year-old male, who presented to [facility], status post fa ll with a chief complaint of back pain. He was found to have an L1 compression fracture. Neurosurge ry was notified, and Trauma Services was asked to admit. The patient was admitted for pain control a nd observation in addition to the fact that there were concerns about his safety and ability to disch arge home. Over the following days, the patient's pain was controlled with p.o. analgesics. He was restarted on his home medications by Hospital Medicine. He worked with physical therapy. He was ernesto luated by inpatient rehabilitation. Insurance authorization for inpatient rehabilitation was receive d on 03/12/2018. He was medically stable for discharge. Pain was controlled with p.o. analgesics, a nd he was tolerating a general diet on that date. DISCHARGE DISPOSITION: Inpatient Rehabilitation. DISCHARGE CONDITION: Fair. PHYSICAL EXAMINATION: VITAL SIGNS: Temperature 97.9, pulse 62, respirations 12, O2 sat 96% on 1-1/2 liters nasal cannula, blood pressure 123/64. GENERAL: Well developed, elderly-appearing male, in no acute distress, sitting in a chair, out of be d with TLSO in place. PULMONARY: Normal work of breathing, IS 1500 mL, symmetric rise. CARDIOVASCULAR: Regular rate and rhythm. GASTROINTESTINAL: Abdomen is soft, nontender, nondistended. MUSCULOSKELETAL: Moves all extremities x4. NEUROLOGIC: No focal deficit noted. DISCHARGE INSTRUCTIONS: The patient should wear TLSO for all out-of-bed activities per Neurosurgery recommendations. Otherwise, his activity as tolerated. He should continue using IS and practicing h is pulmonary toileting. DISCHARGE MEDICATIONS: The patient may resume his home medications. He was discharged on the medica tions as documented in the electronic medical record, a list of which was provided to the accepting f acility. FOLLOWUP APPOINTMENTS: The patient should follow up with primary care provider as needed. He should follow up with Dr. Jaramillo from Neurosurgery as directed by their team. He may call their office f or a followup appointment. He does not need to follow up with Trauma Services at this time formally, but may call our office with any questions. This is merely a summary of the patient's hospitalizati on. For more in-depth information, please see his medical record in its entirety.
--- NOTE | 2018-03-16 18:07 | EKG ---
Test Reason : Blood Pressure : / mmHG Vent. Rate : 064 BPM Atrial Rate : 064 BPM P-R Int : 256 ms QRS Dur : 136 ms QT Int : 446 ms P-R-T Axes : 059 054 094 degrees QTc Int : 460 ms Atrial-paced rhythm with prolonged AV conduction with Premature atrial complexes Right bundle branch block Possible Inferior infarct (cited on or before 01-MAR-2017) Abnormal ECG When compared with ECG of 05-MAR-2018 08:33, (Unconfirmed) Premature atrial complexes are now Present Confirmed by Bryce BRIAN ([id number]) on 03/16/2018 6:06:57 PM Referred By: SONIDO Confirmed By:Bryce BRIAN
== END 2018-03-12 17:08 ==
LOC: ERS 06:34 → SURG A 13:17
PROVIDERS: ADMIT Surgery; ATTEND Surgery
DX: S32.010A Wedge compression fracture of first lumbar vertebra, initial encounter for closed fracture (principal); G89.11 Acute pain due to trauma; M54.12 Radiculopathy, cervical region; M48.02 Spinal stenosis, cervical region; G62.9 Polyneuropathy, unspecified; I48.0 Paroxysmal atrial fibrillation; G47.33 Obstructive sleep apnea (adult) (pediatric); I10 Essential (primary) hypertension; E03.9 Hypothyroidism, unspecified; K59.09 Other constipation; N40.0 Benign prostatic hyperplasia without lower urinary tract symptoms; K21.9 Gastro-esophageal reflux disease without esophagitis; I25.10 Atherosclerotic heart disease of native coronary artery without angina pectoris; R33.8 Other retention of urine; G30.9 Alzheimer's disease, unspecified; F02.80 Dementia in other diseases classified elsewhere, unspecified severity, without behavioral disturbance, psychotic disturbance, mood disturbance, and anxiety; G93.41 Metabolic encephalopathy; Z91.81 History of falling; Z66 Do not resuscitate; Z91.19 Patient's noncompliance with other medical treatment and regimen; Z88.0 Allergy status to penicillin; Z88.1 Allergy status to other antibiotic agents; Z91.041 Radiographic dye allergy status; Z79.82 Long term (current) use of aspirin; Z79.899 Other long term (current) drug therapy; Z95.0 Presence of cardiac pacemaker; Z90.49 Acquired absence of other specified parts of digestive tract; Z99.89 Dependence on other enabling machines and devices; Z98.890 Other specified postprocedural states; W01.0XXA Fall on same level from slipping, tripping and stumbling without subsequent striking against object, initial encounter
CPT/HCPCS: 51702; 70450; 71045 ×2; 72125; 72128; 72131; 72170; 80048 ×4; 80053; 81001; 81003; 82553; 82962; 83735 ×4; 83880; 84100 ×4; 84484 ×2; 85007; 85025 ×4; 85027; 85610; 85730; 93005 ×2; 94640 ×2; 96372 ×6; 96374; 96376; 97110 ×3; 97116 ×7; 97139; 97530 ×6; 97535; 99285; G0378 ×2; G8978; G8979; G8987; G8988; 36415; 36416; 93010; G0390; J1630; J1650; J2270; J7620

== ENCOUNTER 2018-03-16 21:04 | Emergency (ER) | payer MEDICARE ==
[2018-03-16] MEDS ORDERED: Adacel (T-DAP) 0.5 ML VIAL ONE (21:29)
--- NOTE | 2018-03-16 22:03 | CT ---
NONCONTRAST HEAD CT 03/16/18 COMPARISON: 03/05/18. HISTORY: Fall. Pain. TECHNIQUE: Noncontrast head CT is performed from skull base to skull vertex. FINDINGS: No parenchymal hemorrhage. No extra-axial hematoma. No midline shift. Basilar cisterns are patent. Age appropriate atrophy. Chronic small vessel ischemic changes of the wh ite matter are identified. Stable malacic change in the left frontal lobe. Otherwise, cortical palomino-w marianne matter differentiation is preserved. The calvarium is intact. Adequate aeration of the sinuses and mastoid air cells. IMPRESSION: No acute intracranial posttraumatic sequela. POS: [facility]
--- NOTE | 2018-03-16 22:08 | CT ---
CT CERVICAL SPINE WITHOUT CONTRAST: 03/16/18 HISTORY: Fall. Pain. COMPARISON: 03/05/18. TECHNIQUE: Cervical spine CT is performed without contrast. Reformatted images are submitted for interpretation. FINDINGS: Stable postsurgical change at C6. There are varying degrees of central canal stenosis and foraminal n arrowing due to degenerative change. Soft tissue neck structures, upper mediastinum and lung apices a re unremarkable. Odontoid process is intact. Appropriate articulation of the facets. No evidence of craniocervical dis sociation. There is no prevertebral soft tissue swelling or epidural hematoma. Straightening of the normal cervi denise lordosis is again noted and is felt to be due to patient position, muscle spasm or cervical colla r. Current study is not tailored for ligamentous injury. Cervical spine vertebral body height is main tained. No fracture. IMPRESSION: 1. No fracture. 2. Persistent straightening of the normal cervical lordosis. If there is concern for ligamentous injury, consider MRI. POS: [facility]
--- NOTE | 2018-03-16 22:13 | CT ---
CT LUMBAR SPINE WITHOUT CONTRAST: 03/16/18 HISTORY: Fall. Previous L1 fracture. COMPARISON: 03/05/18. TECHNIQUE: Lumbar spine CT is performed without contrast. Reformatted images are submitted for interpretation. FINDINGS: No retroperitoneal mass, lymphadenopathy or hematoma. Stable appearance of the aorta. Symmetric atten uation of the psoas muscles. Transverse processes and spinous processes are intact. There is stable mild loss of vertebral body he ight at L1. Minimal sclerosis compatible with a chronic fracture. No significant change in terms of t he mild loss of vertebral body height. No significant retropulsion. L2 through L5 demonstrate preserv ation of vertebral body height. No new fractures. No spondylolisthesis. No spondylolysis. Stable deg enerative changes of the lumbar spine with varying degrees of central canal stenosis and foraminal na rrowing. A bone island in the right S1 vertebral body is noted. IMPRESSION: 1. Stable mild compression fracture at L1. 2. No new fractures. 3. Stable degenerative change of the lumbar spine with significant central canal stenosis at L2- L3 and L3-L4. POS: [facility]
--- NOTE | 2018-03-16 22:14 | RAD ---
ONE VIEW CHEST: 03/16/18 HISTORY: Fall. Pain. COMPARISON: 03/11/18. FINDINGS: Supine chest radiograph demonstrates a stable left sided transvenous pacemaker. Normal cardiac silhou ette. Lungs and pleural spaces are clear. No pneumothorax on this supine position. No osseous abnorma lities. IMPRESSION: No acute cardiopulmonary process. POS: [facility]
--- NOTE | 2018-03-16 22:15 | RAD ---
FOUR VIEWS LEFT KNEE: 03/16/18 HISTORY: Fall. Pain. COMPARISON: 03/01/17. FINDINGS: No joint effusion. No fracture. No malalignment. Mild loss of joint space height medially. IMPRESSION: No fracture. POS: [facility]
[2018-03-16 22:22] LABS: #Eosinphils 0.3 thou/uL (0.0-0.7); #Lymphocytes 1.2 thou/uL (1.20-3.40); #Monocytes 0.8 thou/uL (0.11-0.59); #Neutrophils 5.2 thou/uL (1.40-6.50); %Basophils 0.2 % (0.0-1.0); %Eosinophils 4.2 % (0.0-10.0); %Lymphocytes 16.3 % (21.0-51.0); %Monocytes 10.8 % (0.0-10.0); %Neutrophils 68.4 % (42.0-75.0); Hemoglobin 15.5 g/dL (14.0-18.0); Mean Corpuscular HGB CONC 33.4 g/dL (32.0-36.0); Mean Corpuscular Hemoglobin 32.9 pg (27.0-31.0); Mean Corpuscular Volume 98.7 fl (80.0-94.0); Platelet Count 332 thou/uL (130-400); RBC Distribution Width 11.8 % (11.5-14.5); White Blood Cell (WBC) Count 7.5 thou/uL (4.8-10.8)
[2018-03-16 22:35] LABS: Anion Gap 15 mmol/L (10-20); BUN (Urea Nitrogen) 20 mg/dL (8.4-25.7); Calc. Creatinine Clearance 0 mL/min (70-130); Calcium 9.4 mg/dL (7.8-10.44); Carbon Dioxide 22 mmol/L (23-31); Chloride 105 mmol/L (98-107); Estimated GFR-MDRD 86; Glucose 110 mg/dL (83-110); Potassium 3.7 mmol/L (3.5-5.1); Sodium 138 mmol/L (136-145)
[2018-03-16] MEDS ORDERED: Bacitracin Zinc 1 Packet ONE (22:39)
== END 2018-03-16 23:04 | disposition home or self-care (01) ==
LOC: ERS 21:04
DX: S00.01XA Abrasion of scalp, initial encounter (principal); S80.212A Abrasion, left knee, initial encounter; S32.019D Unspecified fracture of first lumbar vertebra, subsequent encounter for fracture with routine healing; Z86.73 Personal history of transient ischemic attack (TIA), and cerebral infarction without residual deficits; I25.2 Old myocardial infarction; E03.9 Hypothyroidism, unspecified; K21.9 Gastro-esophageal reflux disease without esophagitis; I10 Essential (primary) hypertension; J45.909 Unspecified asthma, uncomplicated; W05.0XXA Fall from non-moving wheelchair, initial encounter; Z79.82 Long term (current) use of aspirin; Z79.899 Other long term (current) drug therapy
CPT/HCPCS: 36415; 70450; 71045; 72125; 72131; 80048; 85025; 90715

== ENCOUNTER 2018-04-08 13:58 | Outpatient (CLI) | payer MEDICARE ==
--- NOTE | 2018-04-08 14:30 | RAD ---
LUMBAR SPINE TWO VIEWS: Comparison: CT lumbar spine, 03-16-18 History: Follow up lumbar compression fracture. FINDINGS: Two views lumbosacral spine shows wedge compression deformity of L1 vertebral body with approximately 25% height loss. This has slightly worsened compared to the prior examination. The vertebral bodies demonstrate normal alignment without subluxation. Moderate osteophytes are seen throughout the lumbar spine. Posterior facet arthrosis is seen in the lower lumbar spine. IMPRESSION: 1. Wedge compression deformity of L1. 2. Moderate degenerative changes of the lumbar spine. POS: [facility]
== END 2018-04-08 13:59 | disposition home or self-care (01) ==
LOC: TBSIIMAG 13:58
PROVIDERS: ATTEND Neurological Surgery
DX: S32.009A Unspecified fracture of unspecified lumbar vertebra, initial encounter for closed fracture (principal); M47.896 Other spondylosis, lumbar region
CPT/HCPCS: 72100

== ENCOUNTER 2018-04-22 14:05 | Outpatient (CLI) | payer MEDICARE ==
--- NOTE | 2018-04-22 15:53 | RAD ---
TWO VIEWS LUMBAR SPINE 04/22/18 HISTORY: Compression fracture after fall. AP and lateral views of the thoracic spine is obtained. The images demonstrate compression fractures seen in the superior end plate of L1. This is stable and unchanged. Osteophytes also seen in the lumbar spine. Disc space height loss seen at L4-5. Atherosclerotic calcification of the abdominal aorta seen. IMPRESSION: 25% superior aspect L1 compression fracture. POS: [facility]
== END 2018-04-22 14:06 | disposition home or self-care (01) ==
LOC: TBSIIMAG 14:05
PROVIDERS: ATTEND Neurological Surgery
DX: S32.019A Unspecified fracture of first lumbar vertebra, initial encounter for closed fracture (principal)
CPT/HCPCS: 72100

== ENCOUNTER 2018-05-18 16:04 | Emergency (ER) | payer MEDICARE ==
--- NOTE | 2018-05-18 16:41 | CT ---
CT HEAD NONCONTRAST DATE: 05/18/18 HISTORY: Fall. Head injury. COMPARISON: 03/16/18. FINDINGS: There is no evidence of acute intracranial hemorrhage or infarct. The ventricles appear normal in siz e, shape, and position. Diffuse cortical atrophy and chronic ischemic small vessel disease are stable . No mass effect or shift of midline structures. Calcification within the arterial structures at the brain base. IMPRESSION: 1. No acute traumatic injury is demonstrated. 2. Atherosclerosis. 3. Chronic-type findings appear stable. POS: [facility]
--- NOTE | 2018-05-18 16:43 | CT ---
CT CERVICAL SPINE NONCONTRAST: Date: 05/18/18 HISTORY: Fall. Neck injury. COMPARISON: 03/05/18. FINDINGS: Prominent degenerative changes including central canal and foraminal stenoses, and postoperative ragland ge of the lower cervical spine are stable. No acute fracture or dislocation. Slight reversal of anup l lordotic curvature of the mid cervical spine is unchanged in appearance. Cervicothoracic junction i s intact. Calcification within the arterial structures. IMPRESSION: Postoperative and prominent degenerative changes cervical spine, stable. No acute osseous abnormaliti es are demonstrated. POS: [facility]
== END 2018-05-18 17:09 | disposition home or self-care (01) ==
LOC: ERS 16:04
DX: S00.03XA Contusion of scalp, initial encounter (principal); I10 Essential (primary) hypertension; J45.909 Unspecified asthma, uncomplicated; I25.2 Old myocardial infarction; W18.30XA Fall on same level, unspecified, initial encounter
CPT/HCPCS: 70450; 72125

== ENCOUNTER 2018-12-25 22:37 | Observation (INO) | payer MEDICARE ==
--- NOTE | 2018-12-25 23:31 | CT ---
CT BRAIN 12/25/18 HISTORY: Fall, hit back of head. Noncontrast enhanced CT images of the brain obtained. There is a small right occipital scalp hematoma. No underlying calvarial fracture seen. The rest of t he calvarium is unremarkable. Cortical atrophy is seen. No evidence of coup or contrecoup type brain injury seen. Deep white matter ischemic changes seen. No evidence of subarachnoid or subdural blood seen. IMPRESSION: Small right occipital scalp hematoma. No evidence of acute intracranial abnormality seen. POS: [facility]
--- NOTE | 2018-12-25 23:34 | CT ---
CT CERVICAL SPINE: 12/25/18 HISTORY: Fall. Hit back of head. Axial images are obtained with coronal and sagittal reconstructions of the cervical spine. CT images demonstrate no evidence of acute cervical spine fractures. The patient has had previous pos terior laminectomy at the C6 level. Multilevel cervical spine neural foraminal narrowing is present. The most significant level of neural foraminal narrowing appears to be C5-6. No evidence of acute cervical spine fracture is seen. IMPRESSION: C5-6 neural foraminal narrowing and previous C6 laminectomy. No evidence of acute cervical spine abno rmality seen. POS: [facility]
--- NOTE | 2018-12-25 23:35 | RAD ---
FOUR VIEWS RIGHT KNEE: 12/25/18 HISTORY: Fall with right knee pain. AP, lateral and both oblique views right knee obtained. No evidence of acute right knee fractures, sousa bluxations or bony lesions seen. IMPRESSION: No evidence of acute right knee fractures or bony lesions. POS: [facility]
--- NOTE | 2018-12-25 23:36 | RAD ---
TWO VIEWS RIGHT HIP: 12/25/18 HISTORY: Fall. Right hip pain. AP and frogleg views right hip is obtained. No evidence of acute fractures, subluxations or bony lesions seen. IMPRESSION: Normal two views right hip. POS: [facility]
[2018-12-26 01:55] LABS: #Eosinphils 0.3 thou/uL (0.0-0.7); #Lymphocytes 1.3 thou/uL (1.20-3.40); #Monocytes 0.9 thou/uL (0.11-0.59); #Neutrophils 7.8 thou/uL (1.40-6.50); %Basophils 0.4 % (0.0-1.0); %Eosinophils 2.6 % (0.0-10.0); %Lymphocytes 12.5 % (21.0-51.0); %Monocytes 8.7 % (0.0-10.0); %Neutrophils 75.8 % (42.0-75.0); Hemoglobin 14.8 g/dL (14.0-18.0); Mean Corpuscular Hemoglobin 31.7 pg (27.0-31.0); Mean Corpuscular Volume 99.2 fL (78.0-98.0); Mean Platelet Volume 8.3 fL (7.4-10.4); Platelet Count 389 thou/uL (130-400); RBC Distribution Width 12.6 % (11.5-14.5); Red Blood Cell (RBC) Count 4.67 mill/uL (4.70-6.10); White Blood Cell (WBC) Count 10.3 thou/uL (4.8-10.8)
[2018-12-26 02:15] LABS: ALT (SGPT) 13 U/L (8-55); AST (SGOT) 15 U/L (5-34); Albumin 4.3 g/dL (3.4-4.8); Alkaline Phosphatase 51 U/L (40-150); Anion Gap 13 mmol/L (10-20); BUN (Urea Nitrogen) 15 mg/dL (8.4-25.7); Bilirubin, Total 0.3 mg/dL (0.2-1.2); Calc. Creatinine Clearance 0 mL/min (70-130); Calcium 9.6 mg/dL (7.8-10.44); Carbon Dioxide 25 mmol/L (23-31); Chloride 106 mmol/L (98-107); Estimated GFR-MDRD 86; Globulin 2.6 g/dL (2.4-3.5); Glucose 103 mg/dL (83-110); Magnesium 2.5 mg/dL (1.6-2.6); Potassium 3.9 mmol/L (3.5-5.1); Protein, Total 6.9 g/dL (5.8-8.1); Sodium 140 mmol/L (136-145)
[2018-12-26 02:19] LABS: Bilirubin Negative (Negative); Blood, Urine Negative (Negative); Clarity CLEAR (Clear); Glucose, Urine (Dipstick) Negative (Negative); Leukocyte Negative (Negative); Nitrite Negative (Negative); Protein, Urine (Dipstick) Negative (Neg-Trace); Specific Gravity, Urine 1.011 (1.002-1.036); Urobilinogen 0.2 mg/dL (0.2-1.0)
[2018-12-26] MEDS ORDERED: Acetaminophen 500 MG TAB ONE (03:43)
[2018-12-26 04:49] LABS: Troponin I Less than 0.010 ng/mL (< 0.028)
[2018-12-26 05:41] VITALS: BMI 26.9
[2018-12-26 08:22] LABS: Troponin I Less than 0.010 ng/mL (< 0.028)
[2018-12-26] MEDS ORDERED: Ondansetron PF 4 MG/2 ML Vial IVP PRN (13:50)
[2018-12-26] MEDS ORDERED: hydrALAZINE 20 MG/ML VIAL SLOW IVP PRN (13:50)
[2018-12-26] MEDS ORDERED: Ondansetron ODT 4 MG TAB PO PRN (13:50)
[2018-12-26] MEDS ORDERED: Acetaminophen 500 MG TAB PO PRN (13:50)
--- NOTE | 2018-12-26 17:29 | HP ---
PRIMARY CARE PROVIDER: Michael De La Rosa MD CHIEF COMPLAINT: Fall. HISTORY OF PRESENT ILLNESS: This is an 83-year-old male, who presented to [facility] Emergency Department status post a fall in his bathroom. The patient states he was getting out of the tab when he fell striking the back of his head on the toilet seat. The patient denied loss of consciousness and does state he has a history of multiple falls dating back several years. The patient complained of right hip and knee pain with some pain to the back of his scalp. The patient states he underwent recent skin cancer excision on the left occipital region in the last 1 to 2 weeks. The patient does use a rolling walker, wheelchair, and cane at various times at home. The patient resides with his , who states he is basically sedentary and unwilling to do any specific strengthening exercises. The patient has had several stays at inpatient rehabilitation as well as skilled care convalescing after falls or injuries. The patient transitions back home and repeats the same pattern according to the . In the emergency room, the patient underwent CT of the brain showing no acute intracranial process. CT of the cervical spine, hips, and knees showed no acute fracture. The patient received Tylenol 1000 mg x1 dose and was referred to the Hospitalist Service for evaluation. PAST MEDICAL HISTORY: 1. Parkinson disease. 2. Mild dementia. 3. Glaucoma. 4. History of TIAs. 5. Myocardial infarction. 6. Benign prostatic hyperplasia. 7. Hypothyroidism. 8. Hypertension. PAST SURGICAL HISTORY: 1. Status post cholecystectomy. 2. Status post pacemaker placement. 3. Status post hernia repair. 4. Status post tonsillectomy. 5. Status post colon resection. 6. Status post cervical spine surgery. CURRENT MEDICATIONS: List will need to be confirmed with the patient; 1. Enteric-coated aspirin 81 mg p.o. daily. 2. Azopt 1% 1 drop to each eye b.i.d. 3. Brimonidine 0.1% 1 drop to each eye at bedtime. 4. Avodart 0.5 mg p.o. at bedtime. 5. Xalatan 0.005% 1 drop to each eye at bedtime. 6. Levothyroxine 50 mcg p.o. daily. 7. Protonix 40 mg p.o. daily. 8. Isopto Carpine 1 drop to the right eye q.6 hours. 9. Ranexa 500 mg p.o. daily. ALLERGIES: 1. PENICILLIN, IODINATED CONTRAST, ORAL AND IV DYE. 2. LEVOFLOXACIN. 3. SULFA. FAMILY HISTORY: Positive for hypertension. SOCIAL HISTORY: The patient is , accompanied by his in the hospital. No current alcohol, tobacco, or illicit drug use. 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 Ambulatory with use of a rolling walker, wheelchair, cane, and standby/contact guard assistance. REVIEW OF SYSTEMS: CONSTITUTIONAL: Negative for weight loss or gain, ability to conduct usual activities. SKIN: Negative for rash, itching. EYES: Negative for double vision, pain. ENT/MOUTH: Negative for nose bleeding, neck stiffness, pain, tenderness. CARDIOVASCULAR: Negative for palpitations, dyspnea on exertion, orthopnea. RESPIRATORY: Negative for shortness of breath, wheezing, cough, hemoptysis, fever or night sweats. GASTROINTESTINAL: Negative for poor appetite, abdominal pain, heartburn, nausea, vomiting, constipation, or diarrhea. GENITOURINARY: Negative for urgency, frequency, dysuria, nocturia. MUSCULOSKELETAL: Negative for pain, swelling. NEUROLOGIC/PSYCHIATRIC: Negative for anxiety, depression. ALLERGY/IMMUNOLOGIC: Negative for skin rash, bleeding tendency. Otherwise, negative except as stated per HPI. PHYSICAL EXAMINATION: VITAL SIGNS: On admission; blood pressure 106/65, pulse 96, respiratory rate 18, temperature 97.6 degrees Fahrenheit, and O2 saturation is 95% on room air. GENERAL APPEARANCE: This is an 83-year-old male, alert and oriented x3, pleasant, talkative, in no acute distress. HEENT: Pupils are equal, round, and reactive to light and accommodation. Extraocular muscles are intact. No scleral icterus. No conjunctival injection. Nares patent. OP is clear. Teeth in fair repair. Steri-Strips in place to the left occiput with intact scar. Mild abrasion at the occipital region with associated mild edema. NECK: Supple. No cervical adenopathy. No thyromegaly. No carotid bruits. No JVD appreciated. Cervical spine with full active and passive range of motion. No meningeal signs noted. CHEST: Lungs are clear to auscultation bilaterally. CARDIOVASCULAR: S1 and S2 without noted murmur, rub, or gallop. ABDOMEN: Rounded, soft, nontender, and nondistended. Bowel sounds are positive in all 4 quadrants. There is no hepatosplenomegaly. No abdominal bruits. No rebound or guarding appreciated. EXTREMITIES: Warm and dry with fair turgor. No clubbing, cyanosis, or asymmetric edema appreciated. Pulses are palpable distally at the dorsalis pedis, posterior tibial, and popliteal arteries bilaterally. Capillary refill less than 2 seconds. NEUROLOGIC: Cranial nerves 2 through 12 are grossly intact. No focal or lateralizing signs appreciated. The patient not observed ambulatory during this exam. PERTINENT LAB AND X-RAY FINDINGS: Complete metabolic profile within normal limits. Troponin I negative x3. CBC showed a white blood cell count of 10.3, hemoglobin 15, hematocrit 46, MCV 99, and platelet count 389 with 76% neutrophils. Urinalysis negative. CT of the brain without contrast dated 12/25/2018, showed no acute intracranial process. CT of the cervical spine dated 12/25/2018, showed neural foraminal narrowing at C5 on C6. No acute process identified. CT of the cervical spine dated 12/25/2018, showed no acute process. Two views of the right hip dated 12/25/2018, negative. Four views of the right knee dated 12/25/2018, negative. EKG dated 12/25/2018, by my interpretation shows atrial fibrillation with rates in the 90s. Normal R-wave progression noted in the precordial leads. Normal axis. ASSESSMENT AND PLAN: 1. Scalp hematoma. The patient will be observed on the medical floor. Continue symptomatic and supportive management with local care. General fall risk precautions. Hold anticoagulation and NSAIDs. 2. Mechanical fall. The patient with history of recurrent falls per the patient report. PT/OT evaluation for functional assessment. Consider inpatient rehabilitation or home with home health services including Physical Therapy for discharge. 3. Parkinson disease. Continue home medication regimen and monitor clinical response. 4. Hypothyroidism. Resume levothyroxine 50 mcg p.o. daily. 5. Prophylaxis. Sequential compression devices while in bed. Pepcid 20 mg p.o. b.i.d. General fall risk precautions. 6. Code status is full. Surrogate medical decision maker is the patient's spouse. Job ID: [id number]
[2018-12-26] MEDS: Pilocarpine 1% Ophth Drops 15 ML BOT R EYE SCH ×2 (17:52→23:21)
[2018-12-26] MEDS: Calcium Carbonate + Vit D 1 TAB PO SCH (17:53)
[2018-12-26] MEDS: Brinzolamide 1% Ophth Soln 10 ml Bottle EA EYE SCH (20:57)
[2018-12-26] MEDS: Famotidine 20 MG TAB PO SCH (20:57)
[2018-12-26] MEDS ORDERED: Tamsulosin HCl 0.4 MG CAP PO SCH (21:00)
[2018-12-26] MEDS ORDERED: Brimonidine Tartrate 0.2% Ophth Soln 5 ml Bottle EA EYE SCH (21:00)
[2018-12-26] MEDS ORDERED: Latanoprost 0.005% Ophth Soln 2.5 ml Bottle EA EYE SCH (21:00)
[2018-12-27] MEDS ORDERED: Levothyroxine Sodium 50 MCG TAB PO SCH (06:00)
[2018-12-27] MEDS: Pilocarpine 1% Ophth Drops 15 ML BOT R EYE SCH ×2 (06:06→12:14)
[2018-12-27 07:53] LABS: Anion Gap 12 mmol/L (10-20); BUN (Urea Nitrogen) 13 mg/dL (8.4-25.7); Calc. Creatinine Clearance 76 mL/min (70-130); Calcium 9.2 mg/dL (7.8-10.44); Carbon Dioxide 24 mmol/L (23-31); Chloride 106 mmol/L (98-107); Estimated GFR-MDRD 88; Glucose 85 mg/dL (83-110); Potassium 3.5 mmol/L (3.5-5.1); Sodium 138 mmol/L (136-145)
[2018-12-27 08:13] LABS: Free T4 (Free Thyroxine) 1.02 ng/dL (0.70-1.48); Thyroid Stimulating Hormone 2.6436 uIU/mL (0.35-4.94)
[2018-12-27 08:58] LABS: Band 5 % (5-11); Eosinophils 3 % (0-10); Hemoglobin 14.7 g/dL (14.0-18.0); Lymphocytes 17 % (21-51); MDiff Complete? YES; Mean Corpuscular HGB CONC 32.1 g/dL (32.0-36.0); Mean Corpuscular Hemoglobin 31.2 pg (27.0-31.0); Mean Corpuscular Volume 97.1 fL (78.0-98.0); Mean Platelet Volume 8.7 fL (7.4-10.4); Monocytes 9 % (0-10); Neutrophil 63 % (42-75); Platelet Count 388 thou/uL (130-400); Platelet Morphology Comment Appears Adequate; RBC Distribution Width 12.7 % (11.5-14.5); RBC Morphology Normal; Reactive Lymphocytes 2 % (0-10); Red Blood Cell (RBC) Count 4.73 mill/uL (4.70-6.10); White Blood Cell (WBC) Count 7.7 thou/uL (4.8-10.8)
[2018-12-27] MEDS ORDERED: Aspirin 81 mg Enteric Coated Tablet PO SCH (09:00)
[2018-12-27] MEDS ORDERED: Cyanocobalamin (Vitamin B-12) 1,000 MCG TAB PO SCH (09:00)
[2018-12-27] MEDS ORDERED: Amlodipine 10 MG TAB PO SCH (09:00)
[2018-12-27] MEDS: Famotidine 20 MG TAB PO SCH (09:08)
[2018-12-27] MEDS: Calcium Carbonate + Vit D 1 TAB PO SCH (09:09)
[2018-12-27] MEDS: Brinzolamide 1% Ophth Soln 10 ml Bottle EA EYE SCH (09:11)
[2018-12-27 17:05] VITALS: BP 120/81; TEMP 97.4
[2018-12-28] MEDS ORDERED: ZYLET EA EYE SCH (09:00)
[2018-12-28] MEDS ORDERED: Polyethylene Glycol OPTH DROP 15 ML BOT EA EYE SCH (09:00)
[2018-12-28] MEDS ORDERED: Brimonidine Tartrate 0.2% Ophth Soln 5 ml Bottle EA EYE SCH (09:00)
[2018-12-28] MEDS ORDERED: Brinzolamide 1% Ophth Soln 10 ml Bottle EA EYE SCH (09:00)
--- NOTE | 2019-01-01 17:15 | EKG ---
Test Reason : Blood Pressure : / mmHG Vent. Rate : 099 BPM Atrial Rate : 092 BPM P-R Int : 000 ms QRS Dur : 090 ms QT Int : 372 ms P-R-T Axes : 000 034 030 degrees QTc Int : 477 ms Atrial fibrillation Abnormal ECG Confirmed by TONI PADILLA ([id number]), content editor CYNTHIA FRANCO ([id number]) on 01/01/2019 5:14:44 PM Referred By: Confirmed By:TONI PADILLA
== END 2018-12-27 15:56 | disposition home health service (06) ==
LOC: ERS 22:37 → T4-B 12-26 03:12
PROVIDERS: ADMIT Internal Medicine; ATTEND Internal Medicine
DX: S00.03XA Contusion of scalp, initial encounter (principal); G20 Parkinson's disease; F02.80 Dementia in other diseases classified elsewhere, unspecified severity, without behavioral disturbance, psychotic disturbance, mood disturbance, and anxiety; E03.9 Hypothyroidism, unspecified; I10 Essential (primary) hypertension; I25.2 Old myocardial infarction; H40.9 Unspecified glaucoma; N40.0 Benign prostatic hyperplasia without lower urinary tract symptoms; Z86.73 Personal history of transient ischemic attack (TIA), and cerebral infarction without residual deficits; Z90.49 Acquired absence of other specified parts of digestive tract; Z90.89 Acquired absence of other organs; Z95.0 Presence of cardiac pacemaker; Z91.041 Radiographic dye allergy status; Z88.0 Allergy status to penicillin; Z88.1 Allergy status to other antibiotic agents; Z88.2 Allergy status to sulfonamides; Z79.82 Long term (current) use of aspirin; Z79.899 Other long term (current) drug therapy; Z98.890 Other specified postprocedural states; W18.09XA Striking against other object with subsequent fall, initial encounter
CPT/HCPCS: 70450; 72125; 73502; 73564; 80048; 80053; 81003; 83735; 84439; 84443; 84484 ×2; 85007; 85025; 85027; 93005; 97116; 97139; 97530; 99285; G0378 ×2; 36415

== ENCOUNTER 2019-05-31 11:27 | Emergency (ER) | payer MEDICARE ==
--- NOTE | 2019-05-31 12:22 | CT ---
CT Brain WO Con: 05/31/2019 12:04 PM CLINICAL HISTORY: History of fall and dementia. IMAGING TECHNIQUE: Multiple CT images were obtained of the brain without IV contrast. COMPARISON: CT the brain dated December 25, 2018 FINDINGS: Infarct: No acute infarct is evident. 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 There is moderate chronic small vessel white matter ischemic change. Hemorrhage: None.. Hydrocephalus: None.. Basal cisterns: Normal.. Cerebral parenchyma: There is generalized cerebral and cerebellar atrophy that is stable.. Midline shift: None.. Cerebellum: Normal. Brainstem: Normal. OTHER: Calvarium: Intact.. Visualized Paranasal sinuses: Clear.. Extracranial soft tissues:Normal. IMPRESSION: No acute intracranial abnormality.
--- NOTE | 2019-05-31 12:35 | CT ---
EXAM: CT facial bones PROVIDED CLINICAL HISTORY: Full with left-sided jaw pain and laceration to the left jaw COMPARISON: None FINDINGS: Bones: Nasal bones: Intact. Maxilla: Intact. Mandible: Intact. Zygomatic arches: Intact. Pterygoid plates: Intact. Orbital rims: Intact. Orbital wall and floor: Intact. Frontal skull: Intact. Paranasal sinuses: Intact. Orbits: The cheesh-na lenses have been replaced Visualized intracranial contents: There is diffuse cerebral atrophy and remote left frontal lobe analisa ical infarct Cervical spine: There is scattered degenerative and osteoarthritic change present. Soft tissues: Left submandibular soft tissue laceration with soft tissue gas. No radiopaque foreign b wesley IMPRESSION: No evidence for fracture.
--- NOTE | 2019-05-31 12:37 | CT ---
CT Cervical Spine WO Con Indication: Fall with neck pain COMPARISON: None. FINDINGS: Acute fracture/subluxation: None. Spinal alignment: There is slight anterior translation of C4 on C5 which is likely degenerative Craniocervical junction: Within normal limits. Vertebral body heights: Maintained. There is postsurgical change of laminectomy at C6 Cervical spine degenerative change: Severe multilevel disc degenerative and facet osteoarthritic ragland ge. Lung apices: Clear. IMPRESSION: No acute osseous abnormality.
[2019-05-31] MEDS ORDERED: Lidocaine 1% w/Epinephrine 1:100K 20 ML VIAL ONE (13:19)
--- NOTE | 2019-05-31 13:58 | CT ---
CT CHEST WITHOUT CONTRAST CLINICAL INDICATION: Generalized chest pain after a fall. COMPARISON: 05/12/2017 FINDINGS: Aorta: Lack of intravenous contrast limits sensitivity for evaluation of the vascular structures. The thoracic aorta is normal in caliber with vascular calcifications seen in the thoracic aorta as well as involving the coronary arteries. Lungs: There is motion present on the provided images, and this exam is obtained in expiratory phase of imaging. Scattered areas of atelectasis are seen in the dependent portions of each lung base and in the lingula. No pulmonary nodule, mass, or pleural effusion is seen. Mediastinum: Limited secondary to lack of intravenous contrast, but no definite enlarged lymph nodes are seen. The heart is mildly enlarged. A dual-lead left subclavian cardiac pacemaking device is noted in place with RA and RV leads. Thyroid gland: Not well evaluated due to streak artifact from the cardiac pacemaking device. Osseous structures: Degenerative changes are seen throughout the spine. Remote right rib fractures ar e seen. Chest wall: No abnormality visualized. Upper abdomen: Postcholecystectomy changes are noted. Vascular calcifications are seen in the upper a bdomen. A small hiatal hernia is present. A moderate amount of retained fecal material is seen within the transverse colon as well as involving the limited visualized hepatic and splenic flexures. Chest is overall stable when compared to the prior noncontrast exam in 2017. IMPRESSION: 1. Mild cardiomegaly. 2. No acute findings are seen on this nonenhanced CT thorax. 3. Small hiatal hernia. 4. Evidence of constipation involving the visualized upper colon.
== END 2019-05-31 14:39 | disposition home or self-care (01) ==
LOC: ERS 11:27
DX: S11.91XA Laceration without foreign body of unspecified part of neck, initial encounter (principal); S29.011A Strain of muscle and tendon of front wall of thorax, initial encounter; I25.2 Old myocardial infarction; N40.0 Benign prostatic hyperplasia without lower urinary tract symptoms; J45.909 Unspecified asthma, uncomplicated; G20 Parkinson's disease; I20.9 Angina pectoris, unspecified; Z86.73 Personal history of transient ischemic attack (TIA), and cerebral infarction without residual deficits; W19.XXXA Unspecified fall, initial encounter
CPT/HCPCS: 12011; 70450; 70486; 71250; 72125; J2001

== ENCOUNTER 2019-07-23 10:51 | Emergency (ER) | payer MEDICARE ==
[2019-07-23] MEDS ORDERED: Fentanyl 100 MCG/2 ML VIAL ONE (11:18)
[2019-07-23 11:33] LABS: #Eosinphils 0.4 thou/uL (0.0-0.7); #Lymphocytes 0.7 thou/uL (1.20-3.40); #Monocytes 0.7 thou/uL (0.11-0.59); %Basophils 0.5 % (0.0-1.0); %Eosinophils 6.3 % (0.0-10.0); %Lymphocytes 12.6 % (21.0-51.0); %Neutrophils 68.6 % (42.0-75.0); Hemoglobin 15.1 g/dL (14.0-18.0); Mean Corpuscular HGB CONC 32.4 g/dL (32.0-36.0); Mean Corpuscular Hemoglobin 32.6 pg (27.0-31.0); Platelet Count 441 thou/uL (130-400); RBC Distribution Width 12.7 % (11.5-14.5); Red Blood Cell (RBC) Count 4.63 mill/uL (4.70-6.10); White Blood Cell (WBC) Count 5.9 thou/uL (4.8-10.8)
[2019-07-23 11:52] LABS: ALT (SGPT) 15 U/L (8-55); AST (SGOT) 25 U/L (5-34); Albumin 4.3 g/dL (3.4-4.8); Alkaline Phosphatase 54 U/L (40-110); Anion Gap 13 mmol/L (10-20); BUN (Urea Nitrogen) 13 mg/dL (8.4-25.7); Bilirubin, Total 0.6 mg/dL (0.2-1.2); CK (CPK) 99 U/L (30-200); Calc. Creatinine Clearance 0 mL/min (70-130); Calcium 8.8 mg/dL (7.8-10.44); Carbon Dioxide 25 mmol/L (23-31); Chloride 104 mmol/L (98-107); Estimated GFR-MDRD 82; Globulin 2.6 g/dL (2.4-3.5); Glucose 93 mg/dL (83-110); Potassium 5.1 mmol/L (3.5-5.1); Protein, Total 6.9 g/dL (5.8-8.1); Sodium 137 mmol/L (136-145)
--- NOTE | 2019-07-23 11:54 | RAD ---
PORTABLE CHEST ONE VIEW: 07/23/2019 11:07 a.m. HISTORY: Fall. Unknown loss of consciousness. COMPARISON: 03/16/2018 FINDINGS: The heart size is normal. The aorta is tortuous. The left-sided pacemaker device remains in place. Th e lungs are expanded without lobar consolidation, pneumothoraces or pleural effusions. POS: [facility]
--- NOTE | 2019-07-23 11:54 | RAD ---
RIGHT HIP TWO VIEWS: HISTORY: Fall. Right hip pain. FINDINGS: Degenerative changes are present. No acute fracture or dislocation is identified. POS: [facility]
--- NOTE | 2019-07-23 11:55 | RAD ---
AP PELVIS: HISTORY: Fall. COMPARISON: 03/05/2018 FINDINGS: Degenerative changes are present. No acute fracture or dislocation is identified. POS: [facility]
--- NOTE | 2019-07-23 12:00 | CT ---
CT BRAIN WITHOUT CONTRAST: HISTORY: Fall. Unknown loss of consciousness. The patient was found supine on the ground. 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 The ventricular size is stable and the basilar cisterns are patent. No evidence of acute infarct, hemorrhage, midline shift or abnormal extraaxial fluid collections is n oted. The bony calvarium is intact. The visualized paranasal sinuses and mastoid air cells are well a erated. IMPRESSION: No CT evidence of acute intracranial process. POS: [facility]
--- NOTE | 2019-07-23 12:03 | CT ---
CT CERVICAL SPINE WITH CORONAL AND SAGITTAL REFORMATIONS: HISTORY: Fall. Unknown loss of consciousness. COMPARISON: 05/31/2019 FINDINGS: Multilevel degenerative changes are present. There are post surgical changes of laminectomy at C6. No evidence of acute fracture, fracture or facet malalignment is seen. POS: [facility]
== END 2019-07-23 13:11 | disposition home or self-care (01) ==
LOC: ERS 10:51
DX: S70.01XA Contusion of right hip, initial encounter (principal); Z86.73 Personal history of transient ischemic attack (TIA), and cerebral infarction without residual deficits; I25.2 Old myocardial infarction; E03.9 Hypothyroidism, unspecified; N40.0 Benign prostatic hyperplasia without lower urinary tract symptoms; I10 Essential (primary) hypertension; J45.909 Unspecified asthma, uncomplicated; W19.XXXA Unspecified fall, initial encounter
CPT/HCPCS: 70450; 71045; 72125; 72170; 80053; 82550; 84484; 85025; 96374; J3010

== ENCOUNTER 2020-04-18 22:20 | Emergency (ER) | payer MEDICARE ==
--- NOTE | 2020-04-18 23:18 | CT ---
CT Brain WO Con: 04/18/2020 10:43 PM CLINICAL HISTORY: Fall while getting up shower. IMAGING TECHNIQUE: Multiple CT images were obtained of the brain without IV contrast. COMPARISON: CT the brain without contrast dated July 23, 2019 FINDINGS: BRAIN: Evidence of acute infarct: None. Evidence of chronic ischemic change:Mild chronic small vessel white matter ischemic changes stable. R emote cortical-based infarct involving the left frontal lobe is stable. Evidence of intracranial hemorrhage: None. Evidence of midline shift: Third ventricle and septum pellucidum are midline. Ventricles: Generalized cerebral and cerebellar atrophy is stable. No hydrocephalus is evident. SKULL: Intact. VISUALIZED PARANASAL SINUSES: Clear. MASTOID AIR CELLS: Clear. EXTRACRANIAL SOFT TISSUES: Normal. IMPRESSION: No acute intracranial abnormality.
--- NOTE | 2020-04-18 23:20 | CT ---
CT Cervical Spine WO Con Indication: Fall while getting out of shower COMPARISON: CT cervical spine without contrast dated July 23, 2019 FINDINGS: Fracture: None. Spinal alignment: No acute malalignment. Craniocervical junction: Within normal limits. Vertebral body heights: Maintained. Cervical spine degenerative change: Severe spondylosis is similar appearing. Postsurgical change of a C6 laminectomy is stable appearing. Slight anterior translation of C4 on C5 which is likely degenerative is stable appearing. The C4-5 facet complexes are ankylosed. Lung apices: Clear. IMPRESSION: No acute osseous abnormality.
[2020-04-18 23:22] LABS: Hemoglobin 14.9 g/dL (14.0-18.0); Mean Corpuscular HGB CONC 32.2 g/dL (32.0-36.0); Mean Corpuscular Hemoglobin 32.1 pg (27.0-31.0); Mean Corpuscular Volume 99.5 fL (78.0-98.0); RBC Distribution Width 12.1 % (11.5-14.5); Red Blood Cell (RBC) Count 4.66 mill/uL (4.70-6.10); White Blood Cell (WBC) Count 7.5 thou/uL (4.8-10.8)
[2020-04-18 23:29] LABS: ALT (SGPT) 13 U/L (8-55); AST (SGOT) 14 U/L (5-34); Albumin 4.2 g/dL (3.4-4.8); Alkaline Phosphatase 51 U/L (40-110); Anion Gap 12 mmol/L (10-20); BUN (Urea Nitrogen) 19 mg/dL (8.4-25.7); Bilirubin, Total 0.6 mg/dL (0.2-1.2); Calc. Creatinine Clearance 0 mL/min (70-130); Calcium 8.9 mg/dL (7.8-10.44); Carbon Dioxide 28 mmol/L (23-31); Chloride 100 mmol/L (98-107); Estimated GFR-MDRD 69; Globulin 2.4 g/dL (2.4-3.5); Glucose 90 mg/dL (83-110); Potassium 4.3 mmol/L (3.5-5.1); Protein, Total 6.6 g/dL (5.8-8.1); Sodium 136 mmol/L (136-145)
--- NOTE | 2020-04-18 23:33 | CT ---
EXAM: CT Pelvis WO Con DATE: 04/18/2020 12:00 AM INDICATION: Fall with pelvic pain COMPARISON: CT the chest, abdomen and pelvis dated March 01, 2017 FINDING: There is diffuse osteopenia. There is prominent degenerative change of both SI joints. Ther e is mild degenerative change of both hips. No acute fracture is evident. Slight prominence of the distal ureters bilaterally is stable appearing. Prominence of the bladder appears similar . There is prominent amount retained stool within the colon with scattered colonic diverticula. There is a normal appendix in the right lower quadrant. No free fluid is evident. IMPRESSION:No acute fracture or subluxation.
[2020-04-18 23:35] LABS: #Basophils 0.1 thou/uL (0.0-0.2); #Eosinphils 0.3 thou/uL (0.0-0.7); #Monocytes 0.8 thou/uL (0.11-0.59); #Neutrophils 5.3 thou/uL (1.40-6.50); %Basophils 0.7 % (0.0-1.0); %Eosinophils 4.6 % (0.0-10.0); %Lymphocytes 13.6 % (21.0-51.0); %Monocytes 10.6 % (0.0-10.0); %Neutrophils 70.6 % (42.0-75.0); Large Platelets MODERATE; MDiff Complete? YES; Mean Platelet Volume 8.9 fL (7.4-10.4); Platelet Count 648 thou/uL (130-400); Platelet Morphology Comment Appears Increased
== END 2020-04-19 00:08 | disposition home or self-care (01) ==
LOC: ERS 22:20
DX: M54.2 Cervicalgia (principal); E03.9 Hypothyroidism, unspecified; N40.0 Benign prostatic hyperplasia without lower urinary tract symptoms; I10 Essential (primary) hypertension; J45.909 Unspecified asthma, uncomplicated; G20 Parkinson's disease; Z79.82 Long term (current) use of aspirin; Z79.899 Other long term (current) drug therapy; W18.2XXA Fall in (into) shower or empty bathtub, initial encounter; Y92.009 Unspecified place in unspecified non-institutional (private) residence as the place of occurrence of the external cause
CPT/HCPCS: 36415; 70450; 72125; 72192; 80053; 85025; 93005

== ENCOUNTER 2020-07-16 03:12 | Emergency (ER) | payer MEDICARE ==
[2020-07-16] MEDS ORDERED: Acetaminophen 500 MG TAB ONE (04:32)
--- NOTE | 2020-07-16 07:48 | CT ---
PRELIMINARY REPORT/[facility]/EMERGENCY AFTER HOURS PROCEDURE EXAM: CT Head Without Intravenous Contrast. CLINICAL HISTORY: ER 1... Elderly patient presents to the ER by EMS after a fall. His reports that he has signific ant dementia and Parkinson's and is very unsteady on his feet, causing him to fall frequently. She said she was asleep when she heard him fall and it appeared as though he fell backwards with his walk er on top of him. He thinks he was probably getting up to go to the bathroom. Patient complains of pain to the back of his head and neck TECHNIQUE: Axial computed tomography images of the head/brain without intravenous contrast. COMPARISON: April 18, 2020 FINDINGS: BRAIN: No acute intraparenchymal hemorrhage. No mass lesion. No CT evidence for acute territorial infarct. N o midline shift or extra-axial collection. Abundant generalized atrophy and chronic white matter changes as seen on previous. VENTRICLES: No hydrocephalus. ORBITS: The orbits are unremarkable. SINUSES AND MASTOIDS: The paranasal sinuses and mastoid air cells are clear. SOFT TISSUES: No significant facial or scalp soft tissue swelling evident. No radiopaque foreign body is seen. BONES: No acute skull fracture. IMPRESSION: No acute intracranial abnormality. ELECTRONICALLY SIGNED BY: Michael Lucio MD Jul 16, 2020 4:18:05 AM CDT This report is intended for review by the ordering physician only, in accordance of law. If you recei ve this report in error, please call [facility] at [phone]. FINAL REPORT Final report by Dr. Santos Emergency after-hours study CT BRAIN NONCONTRAST: DATE: 07/16/2020 3:58 AM HISTORY: 85-year-old male status post acute head trauma from fall FINDINGS: There is no evidence of acute intra-axial or extra-axial hemorrhage. There is no midline shift or any other mass effect. There is no extra-axial fluid collection. There is no evidence of obstructive hydrocephalus. Calvarium is intact. There is diffuse brain parenchymal volume loss. There are low att enuation areas in the white matter. These are nonspecific, but in a patient of this age, they are probably chronic ischemic white matter changes due to microvascular atherosclerosis. Agree with preli minary report by [facility]. IMPRESSION: 1) No acute intracranial findings. 2) involutional changes and chronic ischemic white matter changes. Transcribed Date/Time: 07/16/2020 8:00 AM
--- NOTE | 2020-07-16 07:54 | CT ---
PRELIMINARY REPORT/[facility]/EMERGENCY AFTER HOURS PROCEDURE EXAM: CT Cervical Spine Without Intravenous Contrast. CLINICAL HISTORY: ER 1... Elderly patient presents to the ER by EMS after a fall. His reports that he has signific ant dementia and Parkinson's and is very unsteady on his feet, causing him to fall frequently. She said she was asleep when she heard him fall and it appeared as though he fell backwards with his walk er on top of him. He thinks he was probably getting up to go to the bathroom. Patient complains of pain to the back of his head and neck TECHNIQUE: Axial computed tomography images of the cervical spine without intravenous contrast. Sagittal and cor onal reformations performed. COMPARISON: April 18, 2020 FINDINGS: BONES: No acute fracture or focal osseous lesion. Bony alignment is anatomic. DISCS / DEGENERATIVE CHANGES: Advanced spondylotic changes, diffuse osteoporosis, with some postsurgical changes noted again demons trated degenerative foraminal compromise bilaterally at multiple levels which is changed. SOFT TISSUES: No prevertebral soft tissue swelling. No apical pneumothorax. IMPRESSION: No acute cervical spine abnormality. Advanced spondylotic changes again noted. ELECTRONICALLY SIGNED BY: Michael Lucio MD Jul 16, 2020 4:20:06 AM CDT This report is intended for review by the ordering physician only, in accordance of law. If you recei ve this report in error, please call [facility] at [phone]. FINAL REPORT Final report by Dr. Santos Emergency after-hours study CT CERVICAL SPINE NONCONTRAST: DATE: 07/16/2020 HISTORY: cervical trauma: 85-year-old male status post fall. FINDINGS: There are no jumped or perched facets. There is no evidence of acute fracture. The vertebral body hei ghts are maintained. There is no prevertebral soft tissue swelling. There are degenerative disc changes and facet osteoarthrosis. Agree with preliminary report by [facility]. IMPRESSION: 1) Cervical spondylosis. 2) no evidence of acute fracture or acute traumatic subluxation. Transcribed Date/Time: 07/16/2020 8:02 AM
== END 2020-07-16 04:39 | disposition home or self-care (01) ==
LOC: ERS 03:12
DX: S16.1XXA Strain of muscle, fascia and tendon at neck level, initial encounter (principal); E03.9 Hypothyroidism, unspecified; I10 Essential (primary) hypertension; J45.909 Unspecified asthma, uncomplicated; G20 Parkinson's disease; F02.80 Dementia in other diseases classified elsewhere, unspecified severity, without behavioral disturbance, psychotic disturbance, mood disturbance, and anxiety; I20.9 Angina pectoris, unspecified; N40.0 Benign prostatic hyperplasia without lower urinary tract symptoms; R29.6 Repeated falls; Z79.82 Long term (current) use of aspirin; Z79.899 Other long term (current) drug therapy; Z91.81 History of falling; W18.30XA Fall on same level, unspecified, initial encounter
CPT/HCPCS: 70450; 72125

== ENCOUNTER 2020-11-07 23:25 | Emergency (ER) | payer MEDICARE ==
[2020-11-07 23:56] LABS: #Basophils 0.1 thou/uL (0.0-0.2); #Eosinphils 0.5 thou/uL (0.0-0.7); #Lymphocytes 1.3 thou/uL (1.20-3.40); #Monocytes 1.1 thou/uL (0.11-0.59); #Neutrophils 7.8 thou/uL (1.40-6.50); %Basophils 0.7 % (0.0-1.0); %Eosinophils 4.6 % (0.0-10.0); %Lymphocytes 11.8 % (21.0-51.0); %Monocytes 10.5 % (0.0-10.0); %Neutrophils 72.3 % (42.0-75.0); Hemoglobin 15.5 g/dL (14.0-18.0); Mean Corpuscular HGB CONC 31.2 g/dL (32.0-36.0); Mean Corpuscular Hemoglobin 30.9 pg (27.0-31.0); Mean Corpuscular Volume 98.8 fL (78.0-98.0); Platelet Count 784 thou/uL (130-400); RBC Distribution Width 12.7 % (11.5-14.5); Red Blood Cell (RBC) Count 5.04 mill/uL (4.70-6.10); White Blood Cell (WBC) Count 10.8 thou/uL (4.8-10.8)
[2020-11-08 00:06] LABS: ALT (SGPT) 31 U/L (8-55); AST (SGOT) 26 U/L (5-34); Albumin 4.5 g/dL (3.4-4.8); Alkaline Phosphatase 64 U/L (40-110); Anion Gap 13 mmol/L (10-20); BUN (Urea Nitrogen) 18 mg/dL (8.4-25.7); Bilirubin, Total 0.5 mg/dL (0.2-1.2); Calc. Creatinine Clearance 0 mL/min (70-130); Calcium 8.7 mg/dL (7.8-10.44); Carbon Dioxide 28 mmol/L (23-31); Chloride 102 mmol/L (98-107); Globulin 2.7 g/dL (2.4-3.5); Glucose 87 mg/dL (83-110); Potassium 4.4 mmol/L (3.5-5.1); Protein, Total 7.2 g/dL (5.8-8.1); Sodium 139 mmol/L (136-145)
[2020-11-08 00:37] LABS: Bilirubin Negative (Negative); Blood, Urine Negative (Negative); Clarity Clear (Clear); Glucose, Urine (Dipstick) Normal (Negative); Ketone, Urine Negative (Negative); Leukocyte Negative Leu/uL (Negative); Nitrite Negative (Negative); Protein, Urine (Dipstick) Negative (Neg-Trace); Specific Gravity, Urine 1.012 (1.002-1.036); Urobilinogen Normal mg/dL (Less than 2); pH, Urine 5.5 (5.0-9.0)
[2020-11-08] MEDS ORDERED: Acetaminophen 325 MG TAB ONE (01:21)
== END 2020-11-08 02:08 | disposition home or self-care (01) ==
LOC: ERS 23:25
DX: S51.011A Laceration without foreign body of right elbow, initial encounter (principal); M25.551 Pain in right hip; M54.2 Cervicalgia; I25.2 Old myocardial infarction; E03.9 Hypothyroidism, unspecified; I10 Essential (primary) hypertension; Z79.899 Other long term (current) drug therapy; Z79.82 Long term (current) use of aspirin; W18.2XXA Fall in (into) shower or empty bathtub, initial encounter
CPT/HCPCS: 36415; 70450; 71045; 72125; 72128; 72131; 72170; 80053; 81003; 85025; 93005; 99283

== ENCOUNTER 2021-08-30 19:40 | Emergency (ER) | payer MEDICARE ==
[2021-08-30 20:25] LABS: Hemoglobin 14.1 g/dL (14.0-18.0); Mean Corpuscular HGB CONC 32.1 g/dL (32.0-36.0); Mean Corpuscular Hemoglobin 31.5 pg (27.0-31.0); Mean Corpuscular Volume 98.1 fL (78.0-98.0); Mean Platelet Volume 8.3 fL (7.4-10.4); Platelet Count 849 thou/uL (130-400); RBC Distribution Width 13.9 % (11.5-14.5); Red Blood Cell (RBC) Count 4.47 mill/uL (4.70-6.10)
[2021-08-30 20:47] LABS: ALT (SGPT) 16 U/L (8-55); AST (SGOT) 19 U/L (5-34); Acetaminophen Less than 6.0 mcg/mL (10.0-30.0); Albumin 3.8 g/dL (3.4-4.8); Alcohol Less than 10 mg/dL (Less than 10); Alkaline Phosphatase 65 U/L (40-110); Anion Gap 9 mmol/L (10-20); BUN (Urea Nitrogen) 15 mg/dL (8.4-25.7); Bilirubin, Total 0.7 mg/dL (0.2-1.2); Calc. Creatinine Clearance 0 mL/min (70-130); Calcium 8.9 mg/dL (7.8-10.44); Carbon Dioxide 28 mmol/L (23-31); Chloride 103 mmol/L (98-107); Globulin 2.6 g/dL (2.4-3.5); Glucose 89 mg/dL (83-110); Potassium 4.1 mmol/L (3.5-5.1); Protein, Total 6.4 g/dL (5.8-8.1); Salicylate Less than 8.0 mg/dL (15.0-30.0); Sodium 136 mmol/L (136-145)
[2021-08-30 20:57] LABS: #Basophils 0.1 thou/uL (0.0-0.2); #Eosinphils 0.6 thou/uL (0.0-0.7); #Lymphocytes 1.1 thou/uL (1.20-3.40); #Neutrophils 7.3 thou/uL (1.40-6.50); %Basophils 0.9 % (0.0-1.0); %Eosinophils 5.6 % (0.0-10.0); %Lymphocytes 10.8 % (21.0-51.0); %Monocytes 10.4 % (0.0-10.0); %Neutrophils 72.3 % (42.0-75.0); Large Platelets SLIGHT; MDiff Complete? YES; Platelet Morphology Comment Appears Increased
[2021-08-30 23:45] LABS: Troponin I Less than 0.010 ng/mL (< 0.028)
[2021-08-30 23:48] LABS: Bilirubin Negative (Negative); Blood, Urine Negative (Negative); Clarity Clear (Clear); Glucose, Urine (Dipstick) Normal (Negative); Ketone, Urine Negative (Negative); Leukocyte Negative Leu/uL (Negative); Nitrite Negative (Negative); Protein, Urine (Dipstick) 20 mg/dL (Neg-Trace); Specific Gravity, Urine 1.031 (1.002-1.036); Urobilinogen 6 mg/dL (Less than 2); pH, Urine 7.5 (5.0-9.0)
== END 2021-08-31 00:05 | disposition home or self-care (01) ==
LOC: ERS 19:40
DX: R07.9 Chest pain, unspecified (principal); R41.82 Altered mental status, unspecified; E03.9 Hypothyroidism, unspecified; I10 Essential (primary) hypertension; J45.909 Unspecified asthma, uncomplicated
CPT/HCPCS: 36415; 70450; 71045; 80053; 80307; 81003; 82140; 83690; 84443; 84484; 85025; 93005